=== PATIENT | male | born 1955 | race Caucasian/White ===

== ENCOUNTER 2020-02-10 09:26 | Emergency (ER) | payer MEDICAID ==
[~2020-02-10] VITALS: Ht 185.4 cm; Wt 81.6 kg
[2020-02-10 10:18] LABS: Basophils # (auto) 0.1 10 ^3/uL (0-0.2); Basophils % (auto) 0.9 % (0.0-2.0); Eosinophils # (auto) 0.3 10 ^3/uL (0-0.8); Hematocrit 42.2 % (41.0-53.0); Lymphocytes # (auto) 2.1 10 ^3/uL (0.4-5.4); Lymphocytes % (auto) 30.1 % (10.0-50.0); Mean Corpuscular Hemoglobin 31.8 pg (28.0-32.0); Mean Corpuscular Hgb Conc. 35.5 g/dL (32.0-36.0); Mean Corpuscular Volume 89.5 fL (80.0-100.0); Monocytes # (auto) 0.6 10 ^3/uL (0-1.3); Monocytes % (auto) 7.8 % (0.0-12.0); Neutrophils % (auto) 57.2 % (37.0-80.0); Nucleated Red Blood Cells % 0.2 %; Platelet Count (auto) 249 10^3/uL (140-450); Red Blood Cells 4.72 10^6/uL (4.5-5.90); Red Cell Distribution Width 13.6 % (11.8-14.3); White Blood Cell 7.1 10^3/uL (4.4-10.8)
[2020-02-10] MEDS ORDERED: SODIUM CHLORIDE 0.9% 1,000 ML IV ONE (10:30)
[2020-02-10 10:35] LABS: Albumin 3.8 g/dL (3.4-5.0); Calcium 8.8 mg/dL (8.5-10.1); Potassium 3.7 mmol/L (3.5-5.1)
[2020-02-10 10:39] LABS: BUN/Creatinine Ratio 13.8; Bilirubin, Total 0.8 mg/dL (0.2-1.0); Total Protein 7.2 g/dL (6.4-8.2)
[2020-02-10 13:00] LABS: Urine Bacteria NONE SEEN /hpf (None Seen); Urine Blood Negative /uL (Negative); Urine Mucus FEW (None Seen); Urine Specific Gravity 1.035 (1.001-1.035); Urine WBC <1 /hpf (0 - 3)
[2020-02-10 14:45] VITALS: BP 125/86
== END 2020-02-10 16:18 | disposition left against medical advice (07) ==
LOC: ER 09:26
DX: E11.65 Type 2 diabetes mellitus with hyperglycemia (principal); I10 Essential (primary) hypertension; M10.9 Gout, unspecified; F12.10 Cannabis abuse, uncomplicated; Z53.29 Procedure and treatment not carried out because of patient's decision for other reasons
CPT/HCPCS: 36415; 80053; 81001; 82962; 85025; 96360; 99283; J7030

== ENCOUNTER 2020-07-09 12:38 | Inpatient (IN) | payer MEDICAID ==
[~2020-07-09] VITALS: Ht 185.4 cm; Wt 79.0 kg
[2020-07-09] MEDS ORDERED: ONDANSETRON HCL 4 MG/2 ML VIAL IV ONE (14:00)
[2020-07-09] MEDS ORDERED: SODIUM CHLORIDE 0.9% 1,000 ML IVB ONE ×2 (14:00→15:15)
[2020-07-09 14:14] LABS: Basophils # (auto) 0.1 10 ^3/uL (0-0.2); Basophils % (auto) 0.5 % (0.0-2.0); Eosinophils # (auto) 0 10 ^3/uL (0-0.8); Eosinophils % (auto) 0.2 % (0.0-7.0); Hematocrit 40.4 % (41.0-53.0); Hemoglobin 14.6 g/dL (13.5-17.5); Lymphocytes # (auto) 1.3 10 ^3/uL (0.4-5.4); Lymphocytes % (auto) 8.8 % (10.0-50.0); Mean Corpuscular Hemoglobin 29.6 pg (28.0-32.0); Mean Corpuscular Hgb Conc. 36.1 g/dL (32.0-36.0); Mean Corpuscular Volume 82.1 fL (80.0-100.0); Monocytes # (auto) 1.1 10 ^3/uL (0-1.3); Monocytes % (auto) 7.4 % (0.0-12.0); Neutrophils % (auto) 83.1 % (37.0-80.0); Nucleated Red Blood Cells % 0.1 %; Platelet Count (auto) 406 10^3/uL (140-450); Red Blood Cells 4.92 10^6/uL (4.5-5.90); White Blood Cell 14.4 10^3/uL (4.4-10.8)
[2020-07-09 14:30] LABS: Albumin 2.6 g/dL (3.4-5.0); Calcium 8.4 mg/dL (8.5-10.1); INR 1.21 (0.9-1.15); Partial Thromboplastin Time 28.7 sec (23.0-31.2); Potassium 4.9 mmol/L (3.5-5.1)
[2020-07-09 14:32] LABS: Magnesium 2.2 mg/dL (1.6-2.6)
[2020-07-09 14:34] LABS: BUN/Creatinine Ratio 15.6; Bilirubin, Total 0.5 mg/dL (0.2-1.0)
[2020-07-09 14:37] LABS: Urine Bacteria NONE SEEN /hpf (None Seen); Urine Blood 3+ /uL (Negative); Urine Mucus FEW (None Seen); Urine Specific Gravity 1.016 (1.001-1.035); Urine WBC 2578 /hpf (0 - 3); Urine WBC Clumps PRESENT /hpf (None Seen)
[2020-07-09] MEDS ORDERED: cefTRIAXone 1GM/50ML D5W 50 ML IV ONE (15:15)
[2020-07-09] MEDS ORDERED: MORPHINE SULF INJ 2 MG/ML SYRINGE 1ML IV ONE ×2 (15:15→15:30)
[2020-07-09] MEDS ORDERED: MORPHINE SULF INJ 2 MG/ML SYRINGE 1ML IV PRN (18:30)
[2020-07-09] MEDS ORDERED: hydrALAZINE HCL 20 MG/ML VL IV PRN (18:30)
[2020-07-09] MEDS ORDERED: NITROGLYCERIN 0.4 MG SL TAB SL PRN (18:30)
[2020-07-09] MEDS ORDERED: ONDANSETRON HCL 4 MG/2 ML VIAL IV PRN (18:30)
[2020-07-09] MEDS ORDERED: ACETAMINOPHEN 325 MG TAB PO PRN (18:30)
[2020-07-09] MEDS ORDERED: HYDROcodone-ACET 5/325MG TAB PO PRN (18:30)
[2020-07-09] MEDS: ENOXAPARIN SOD 30 MG/0.3 ML SYRINGE SC SCH (18:54)
[2020-07-09 20:33] VITALS: BP 152/87
[2020-07-09 20:38] VITALS: BP 152/87
[2020-07-09] MEDS: MEROPENEM 500MG IVPB 50 ML IV SCH (21:52)
[2020-07-09 22:00] VITALS: BP 152/87
[2020-07-09] MEDS: LINEZOLID 600MG/300ML 300 ML IV SCH (22:52)
[2020-07-10 05:00] VITALS: BP 153/96
[2020-07-10 06:19] LABS: Protein, Urine 16.5 mg/dL (0.0-11.9)
[2020-07-10] MEDS: MEROPENEM 500MG IVPB 50 ML IV SCH ×2 (07:23→18:27)
[2020-07-10 09:00] VITALS: BP 120/83
[2020-07-10] MEDS ORDERED: cefTRIAXone 1GM/50ML D5W 50 ML IV SCH (10:00)
[2020-07-10] MEDS: LINEZOLID 600MG/300ML 300 ML IV SCH ×2 (10:04→21:23)
[2020-07-10] MEDS: PANTOPRAZOLE 40 MG TAB PO SCH (10:04)
[2020-07-10 13:00] VITALS: BP 134/82
[2020-07-10 16:30] LABS: Basophils # (auto) 0.1 10 ^3/uL (0-0.2); Eosinophils # (auto) 0.2 10 ^3/uL (0-0.8); Eosinophils % (auto) 1.8 % (0.0-7.0); Hematocrit 37.1 % (41.0-53.0); Lymphocytes # (auto) 1.7 10 ^3/uL (0.4-5.4); Lymphocytes % (auto) 18.4 % (10.0-50.0); Mean Corpuscular Hemoglobin 29.3 pg (28.0-32.0); Mean Corpuscular Volume 83.7 fL (80.0-100.0); Monocytes # (auto) 0.8 10 ^3/uL (0-1.3); Monocytes % (auto) 8.1 % (0.0-12.0); Neutrophils # (auto) 6.7 10 ^3/uL (1.6-8.6); Neutrophils % (auto) 70.7 % (37.0-80.0); Nucleated Red Blood Cells % 0.1 %; Platelet Count (auto) 411 10^3/uL (140-450); Red Blood Cells 4.43 10^6/uL (4.5-5.90); Red Cell Distribution Width 15.1 % (11.8-14.3); White Blood Cell 9.4 10^3/uL (4.4-10.8)
[2020-07-10 16:33] VITALS: BP 130/79
[2020-07-10] MEDS: SOD CHL 0.45% 1,000 ML IV SCH (16:45)
[2020-07-10 16:47] LABS: Potassium 4.8 mmol/L (3.5-5.1)
[2020-07-10 16:50] LABS: BUN/Creatinine Ratio 17.5
[2020-07-10] MEDS: ENOXAPARIN SOD 30 MG/0.3 ML SYRINGE SC SCH (18:00)
[2020-07-10 22:00] VITALS: BP 122/69
[2020-07-11] MEDS: SOD CHL 0.45% 1,000 ML IV SCH ×2 (02:45→14:12)
[2020-07-11 05:18] VITALS: BP 129/83
[2020-07-11 05:25] LABS: Basophils # (auto) 0.1 10 ^3/uL (0-0.2); Basophils % (auto) 0.9 % (0.0-2.0); Eosinophils # (auto) 0.3 10 ^3/uL (0-0.8); Eosinophils % (auto) 2.9 % (0.0-7.0); Hemoglobin 12.4 g/dL (13.5-17.5); Lymphocytes # (auto) 2.4 10 ^3/uL (0.4-5.4); Lymphocytes % (auto) 24.5 % (10.0-50.0); Mean Corpuscular Hemoglobin 29.6 pg (28.0-32.0); Mean Corpuscular Hgb Conc. 35.4 g/dL (32.0-36.0); Mean Corpuscular Volume 83.5 fL (80.0-100.0); Monocytes # (auto) 0.7 10 ^3/uL (0-1.3); Monocytes % (auto) 7.2 % (0.0-12.0); Neutrophils # (auto) 6.3 10 ^3/uL (1.6-8.6); Neutrophils % (auto) 64.5 % (37.0-80.0); Platelet Count (auto) 385 10^3/uL (140-450); Red Blood Cells 4.19 10^6/uL (4.5-5.90); Red Cell Distribution Width 14.4 % (11.8-14.3); White Blood Cell 9.8 10^3/uL (4.4-10.8)
[2020-07-11 05:43] LABS: Calcium 7.8 mg/dL (8.5-10.1); Potassium 4.6 mmol/L (3.5-5.1)
[2020-07-11 05:47] LABS: BUN/Creatinine Ratio 17.9; Bilirubin, Total 0.2 mg/dL (0.2-1.0); Total Protein 6.3 g/dL (6.4-8.2)
[2020-07-11] MEDS: MEROPENEM 500MG IVPB 50 ML IV SCH ×2 (06:13→18:13)
[2020-07-11 09:00] VITALS: BP 143/84
[2020-07-11] MEDS ORDERED: GADOTERATE MEG 10 MMOL/20ml INJ (0.5MMOL/ml) IV ONE (09:18)
[2020-07-11] MEDS: LINEZOLID 600MG/300ML 300 ML IV SCH (12:11)
[2020-07-11] MEDS: PANTOPRAZOLE 40 MG TAB PO SCH (12:11)
[2020-07-11 13:00] VITALS: BP 139/84
[2020-07-11 17:00] VITALS: BP 142/80
[2020-07-11] MEDS: ENOXAPARIN SOD 30 MG/0.3 ML SYRINGE SC SCH (18:13)
[2020-07-11] MEDS ORDERED: GLIM-5 PO (18:27)
[2020-07-11] MEDS ORDERED: METF-370 PO (18:27)
[2020-07-11] MEDS ORDERED: CIPR500T4 PO (18:28)
[2020-07-11 19:07] VITALS: BP 142/80
[2020-07-11 19:38] VITALS: BP 142/80
[2020-07-11] MEDS ORDERED: CIPROFLOXACIN HCL 500 MG TAB PO SCH (22:00)
== END 2020-07-11 21:00 | disposition home health service (06) | DRG 463 ==
LOC: ER 12:38 → TELE 18:28 → TELE-EAST 20:37 → TELE-CENTR 07-10 13:26
PROVIDERS: ADMIT Internal Medicine; ATTEND Internal Medicine
DX: N30.80 Other cystitis without hematuria (principal); J18.9 Pneumonia, unspecified organism; E44.0 Moderate protein-calorie malnutrition; E87.1 Hypo-osmolality and hyponatremia; N45.1 Epididymitis; Z20.822 Contact with and (suspected) exposure to COVID-19; N17.0 Acute kidney failure with tubular necrosis; N13.6 Pyonephrosis; N43.3 Hydrocele, unspecified; E11.21 Type 2 diabetes mellitus with diabetic nephropathy; E11.65 Type 2 diabetes mellitus with hyperglycemia; I10 Essential (primary) hypertension; J45.909 Unspecified asthma, uncomplicated; K59.00 Constipation, unspecified; N28.1 Cyst of kidney, acquired; N45.3 Epididymo-orchitis; Z79.4 Long term (current) use of insulin; Z82.49 Family history of ischemic heart disease and other diseases of the circulatory system; J90 Pleural effusion, not elsewhere classified
CPT/HCPCS: 36415; 51702; 71045; 73723; 74176; 74181; 76775; 80048; 80053; 81001; 82150; 82570; 83036; 83605; 83690; 83735; 84133; 84156; 84300; 84484; 85025; 85610; 85730; 87040; 87086; 87426; 93005; 96365; 96372; 96375; 99291; G0378; J0696; J2185; J2405

== ENCOUNTER 2021-11-23 11:03 | Inpatient (IN) | payer MEDICARE, MEDICAID ==
[~2021-11-23] VITALS: Ht 185.4 cm; Wt 72.4 kg
[~2021-11-23 11:03] MED LIST: CIPR500T4 PO; GLIM-5 PO; METF-370 PO
[2021-11-23] MEDS ORDERED: PIPERACILLIN-TAZOB 3.375GM 100 ML IV ONE (12:00)
[2021-11-23] MEDS: SODIUM CHLORIDE 0.9% 1,000 ML IV ONE ×2 (12:15→15:47)
[2021-11-23 12:35] LABS: Basophils # (auto) 0.1 10 ^3/uL (0-0.2); Eosinophils # (auto) 0 10 ^3/uL (0-0.8)
[2021-11-23 12:37] LABS: Basophils % (auto) 0.7 % (0.0-2.0); Hematocrit 29.7 % (41.0-53.0); Hemoglobin 9.6 g/dL (13.5-17.5); Lymphocytes % (auto) 5.2 % (10.0-50.0); Mean Corpuscular Hemoglobin 25.6 pg (28.0-32.0); Mean Corpuscular Hgb Conc. 32.5 g/dL (32.0-36.0); Mean Corpuscular Volume 78.9 fL (80.0-100.0); Monocytes # (auto) 1.1 10 ^3/uL (0-1.3); Monocytes % (auto) 5.4 % (0.0-12.0); Neutrophils # (auto) 17.9 10 ^3/uL (1.6-8.6); Neutrophils % (auto) 88.7 % (37.0-80.0); Nucleated Red Blood Cells % 0.1 %; Red Blood Cells 3.76 10^6/uL (4.5-5.90); Red Cell Distribution Width 15.2 % (11.8-14.3); White Blood Cell 20.1 10^3/uL (4.4-10.8)
[2021-11-23 12:51] LABS: Calcium 8.4 mg/dL (8.5-10.1); Potassium 4.5 mmol/L (3.5-5.1)
[2021-11-23 12:54] LABS: Lactic Acid w/Reflex 2.7 mmol/L (0.4-2.0)
[2021-11-23 12:59] LABS: BUN/Creatinine Ratio 18.2; Bilirubin, Total 0.4 mg/dL (0.2-1.0); CRP High Sensitivity 18.1 mg/dL (< 0.3); Total Protein 7.1 g/dL (6.4-8.2)
[2021-11-23] MEDS ORDERED: VANCOMYCIN 1GM/250ML 250 ML IV ONE (13:15)
[2021-11-23] MEDS ORDERED: SODIUM CHLORIDE 0.9% 1,000 ML IV ONE ×2 (13:30→14:15)
[2021-11-23] MEDS ORDERED: InsuLIN REG 1unit/0.01ml Soln (100units/ml) IV ONE (13:30)
[2021-11-23 14:11] LABS: Urine Bacteria MANY /hpf (None Seen); Urine Blood Negative /uL (Negative); Urine Specific Gravity 1.017 (1.001-1.035); Urine WBC 238 /hpf (0 - 3); Urine WBC Clumps PRESENT /hpf (None Seen)
[2021-11-23] MEDS ORDERED: VANCOMYCIN PER PHARMACY 0 MG IV SCH (14:30)
[2021-11-23] MEDS ORDERED: DEXTROSE (50%) 50ML SYRG IV PRN (15:00)
[2021-11-23 15:25] LABS: Cholesterol 73 mg/dL (< 200)
[2021-11-23 15:27] LABS: HDL Cholesterol 24 mg/dL (40-59); LDL Cholesterol 51 mg/dL (< 100); Triglycerides 80 mg/dL (< 150)
[2021-11-23] MEDS: SODIUM CHLORIDE 0.9% 1,000 ML IV SCH (16:55)
[2021-11-23] MEDS: ACCU-CHEK COMFORT CURVE STRIP VI SCH ×2 (17:11→22:06)
[2021-11-23] MEDS: InsuLIN REG 1unit/0.01ml Soln (100units/ml) SC SCH ×2 (17:12→21:57)
[2021-11-23] MEDS: PIPERACILLIN-TAZOB 2.25GM 50 ML IV SCH (18:37)
[2021-11-23 22:00] VITALS: BP 104/65
[2021-11-23] MEDS: INSULIN LANTUS (GLARGINE) 1 /0.01ml (100units/ml) SC SCH (22:05)
[2021-11-23] MEDS: HEPARIN SODIUM (PORCINE) 5000 UNITS/ML 1ML VIAL SC SCH (22:06)
[2021-11-23] MEDS ORDERED: ATOR20TA50 PO (22:38)
[2021-11-24] MEDS: PIPERACILLIN-TAZOB 2.25GM 50 ML IV SCH ×4 (00:14→17:34)
[2021-11-24] MEDS: SODIUM CHLORIDE 0.9% 1,000 ML IV SCH ×3 (01:30→21:30)
[2021-11-24] MEDS: VANCOMYCIN 1GM/250ML 250 ML IV SCH ×2 (02:25→15:00)
[2021-11-24 05:00] VITALS: BP 94/53
[2021-11-24] MEDS: InsuLIN REG 1unit/0.01ml Soln (100units/ml) SC SCH ×4 (06:28→22:03)
[2021-11-24] MEDS: ACCU-CHEK COMFORT CURVE STRIP VI SCH ×4 (06:30→22:03)
[2021-11-24 08:54] LABS: Basophils # (auto) 0.1 10 ^3/uL (0-0.2); Basophils % (auto) 0.9 % (0.0-2.0); Eosinophils # (auto) 0.1 10 ^3/uL (0-0.8); Eosinophils % (auto) 1.1 % (0.0-7.0); Hemoglobin 8.1 g/dL (13.5-17.5); Mean Corpuscular Hemoglobin 26.1 pg (28.0-32.0); Monocytes # (auto) 0.8 10 ^3/uL (0-1.3)
[2021-11-24 08:55] LABS: Hematocrit 24.1 % (41.0-53.0); Lymphocytes # (auto) 1.5 10 ^3/uL (0.4-5.4); Lymphocytes % (auto) 13.2 % (10.0-50.0); Mean Corpuscular Hgb Conc. 33.7 g/dL (32.0-36.0); Mean Corpuscular Volume 77.4 fL (80.0-100.0); Monocytes % (auto) 7.3 % (0.0-12.0); Neutrophils # (auto) 8.9 10 ^3/uL (1.6-8.6); Neutrophils % (auto) 77.5 % (37.0-80.0); Red Blood Cells 3.11 10^6/uL (4.5-5.90); Red Cell Distribution Width 15.3 % (11.8-14.3); White Blood Cell 11.5 10^3/uL (4.4-10.8)
[2021-11-24 09:14] LABS: Albumin 1.6 g/dL (3.4-5.0); Bilirubin, Total 0.3 mg/dL (0.2-1.0); Calcium 8.1 mg/dL (8.5-10.1); Total Protein 5.8 g/dL (6.4-8.2)
[2021-11-24] MEDS: HEPARIN SODIUM (PORCINE) 5000 UNITS/ML 1ML VIAL SC SCH ×2 (09:21→22:04)
[2021-11-24 09:35] VITALS: BP 103/61
[2021-11-24 13:19] VITALS: BP 97/57
[2021-11-24] MEDS ORDERED: DAKINS QUARTER STR 0.125% (NaHypochlorite) 473 ML TOPICAL SOL TOP SCH (14:00)
[2021-11-24 17:40] VITALS: BP 107/68
[2021-11-24 22:00] VITALS: BP 111/64
[2021-11-24] MEDS: INSULIN LANTUS (GLARGINE) 1 /0.01ml (100units/ml) SC SCH (22:02)
[2021-11-25] MEDS: PIPERACILLIN-TAZOB 2.25GM 50 ML IV SCH ×4 (01:11→18:17)
[2021-11-25] MEDS: VANCOMYCIN 1GM/250ML 250 ML IV SCH (02:00)
[2021-11-25] MEDS: SODIUM CHLORIDE 0.9% 1,000 ML IV SCH (03:59)
[2021-11-25 05:00] VITALS: BP 106/76
[2021-11-25] MEDS: ACCU-CHEK COMFORT CURVE STRIP VI SCH ×4 (06:44→22:02)
[2021-11-25] MEDS: InsuLIN REG 1unit/0.01ml Soln (100units/ml) SC SCH ×4 (06:44→22:00)
[2021-11-25 08:55] VITALS: BP 132/63
[2021-11-25] MEDS: HEPARIN SODIUM (PORCINE) 5000 UNITS/ML 1ML VIAL SC SCH ×2 (10:29→21:59)
[2021-11-25] MEDS: DAKINS QUARTER STR 0.125% (NaHypochlorite) 473 ML TOPICAL SOL TOP SCH (11:24)
[2021-11-25] MEDS ORDERED: MORPHINE SULFATE INJ 2 MG/ml SYRG IV PRN (12:15)
[2021-11-25 13:00] VITALS: BP 120/65
[2021-11-25] MEDS ORDERED: VANCOMYCIN 1GM/250ML 250 ML IV SCH (15:00)
[2021-11-25 16:45] VITALS: BP 123/72
[2021-11-25] MEDS: VANCOMYCIN 750mg/250ml 250 ML IV SCH (16:56)
[2021-11-25 22:00] VITALS: BP 126/76
[2021-11-25] MEDS: INSULIN LANTUS (GLARGINE) 1 /0.01ml (100units/ml) SC SCH (22:00)
[2021-11-26] MEDS: PIPERACILLIN-TAZOB 2.25GM 50 ML IV SCH ×4 (00:02→12:41)
[2021-11-26] MEDS: SODIUM CHLORIDE 0.9% 1,000 ML IV SCH ×3 (00:03→20:09)
[2021-11-26 05:00] VITALS: BP 124/69
[2021-11-26] MEDS: VANCOMYCIN 750mg/250ml 250 ML IV SCH (05:32)
[2021-11-26] MEDS: InsuLIN REG 1unit/0.01ml Soln (100units/ml) SC SCH ×4 (06:27→21:52)
[2021-11-26] MEDS: ACCU-CHEK COMFORT CURVE STRIP VI SCH ×4 (06:28→21:53)
[2021-11-26 09:20] VITALS: BP 115/68
[2021-11-26] MEDS: HEPARIN SODIUM (PORCINE) 5000 UNITS/ML 1ML VIAL SC SCH ×3 (09:54→21:58)
[2021-11-26] MEDS: DAKINS QUARTER STR 0.125% (NaHypochlorite) 473 ML TOPICAL SOL TOP SCH (09:58)
[2021-11-26 10:28] LABS: Basophils # (auto) 0.1 10 ^3/uL (0-0.2); Eosinophils # (auto) 0.2 10 ^3/uL (0-0.8); Hemoglobin 8.7 g/dL (13.5-17.5); Monocytes # (auto) 0.7 10 ^3/uL (0-1.3)
[2021-11-26 10:30] LABS: Eosinophils % (auto) 1.9 % (0.0-7.0); Lymphocytes # (auto) 1.4 10 ^3/uL (0.4-5.4); Lymphocytes % (auto) 14.6 % (10.0-50.0); Mean Corpuscular Hemoglobin 26.1 pg (28.0-32.0); Mean Corpuscular Hgb Conc. 33.4 g/dL (32.0-36.0); Mean Corpuscular Volume 78.1 fL (80.0-100.0); Monocytes % (auto) 7.8 % (0.0-12.0); Neutrophils # (auto) 7.1 10 ^3/uL (1.6-8.6); Neutrophils % (auto) 74.7 % (37.0-80.0); Nucleated Red Blood Cells % 0.1 %; Red Blood Cells 3.33 10^6/uL (4.5-5.90); Red Cell Distribution Width 15.5 % (11.8-14.3); White Blood Cell 9.5 10^3/uL (4.4-10.8)
[2021-11-26 10:40] LABS: Potassium 4.9 mmol/L (3.5-5.1)
[2021-11-26 10:44] LABS: BUN/Creatinine Ratio 25.7; Calcium 8.3 mg/dL (8.5-10.1)
[2021-11-26 12:45] VITALS: BP 113/68
[2021-11-26] MEDS ORDERED: levoFLOXacin 750MG 150 ML IV ONE (15:30)
[2021-11-26 16:54] VITALS: BP 110/70
[2021-11-26] MEDS: INSULIN LANTUS (GLARGINE) 1 /0.01ml (100units/ml) SC SCH (21:52)
[2021-11-26 22:00] VITALS: BP 96/53
[2021-11-27] MEDS: SODIUM CHLORIDE 0.9% 1,000 ML IV SCH ×2 (02:30→09:30)
[2021-11-27 05:00] VITALS: BP 128/75
[2021-11-27] MEDS: ACCU-CHEK COMFORT CURVE STRIP VI SCH ×2 (06:35→11:37)
[2021-11-27] MEDS: InsuLIN REG 1unit/0.01ml Soln (100units/ml) SC SCH ×2 (06:38→11:40)
[2021-11-27 07:11] LABS: Basophils # (auto) 0.1 10 ^3/uL (0-0.2); Basophils % (auto) 1.1 % (0.0-2.0); Eosinophils # (auto) 0.2 10 ^3/uL (0-0.8); Monocytes # (auto) 0.8 10 ^3/uL (0-1.3); Neutrophils # (auto) 7.4 10 ^3/uL (1.6-8.6); Nucleated Red Blood Cells % 0.1 %
[2021-11-27 07:13] LABS: Eosinophils % (auto) 1.8 % (0.0-7.0); Hematocrit 26.9 % (41.0-53.0); Hemoglobin 8.9 g/dL (13.5-17.5); Lymphocytes # (auto) 1.8 10 ^3/uL (0.4-5.4); Lymphocytes % (auto) 17.9 % (10.0-50.0); Mean Corpuscular Hemoglobin 26.2 pg (28.0-32.0); Mean Corpuscular Hgb Conc. 33.1 g/dL (32.0-36.0); Monocytes % (auto) 7.4 % (0.0-12.0); Neutrophils % (auto) 71.8 % (37.0-80.0); Red Cell Distribution Width 15.3 % (11.8-14.3); White Blood Cell 10.3 10^3/uL (4.4-10.8)
[2021-11-27 07:26] LABS: BUN/Creatinine Ratio 19.9; Calcium 8.3 mg/dL (8.5-10.1); Potassium 4.5 mmol/L (3.5-5.1)
[2021-11-27 08:40] VITALS: BP 130/72
[2021-11-27] MEDS ORDERED: levoFLOXacin 750MG 150 ML IV SCH (10:00)
[2021-11-27] MEDS: DAKINS QUARTER STR 0.125% (NaHypochlorite) 473 ML TOPICAL SOL TOP SCH (10:51)
[2021-11-27] MEDS ORDERED: LEVO750T64 PO (12:44)
[2021-11-27] MEDS ORDERED: DOXY-332 PO (12:44)
[2021-11-27 13:00] VITALS: BP 116/69
[2021-11-27 13:35] VITALS: BP 116/69
== END 2021-11-27 15:53 | disposition home or self-care (01) | DRG 638 ==
LOC: ER 11:12 → TELE 14:51 → TELE-WESTW 20:48
PROVIDERS: ADMIT Registered Nurse; ATTEND Internal Medicine Pulmonary Disease
DX: E11.69 Type 2 diabetes mellitus with other specified complication (principal); E87.1 Hypo-osmolality and hyponatremia; M86.8X7 Other osteomyelitis, ankle and foot; E88.09 Other disorders of plasma-protein metabolism, not elsewhere classified; L97.509 Non-pressure chronic ulcer of other part of unspecified foot with unspecified severity; N18.32 Chronic kidney disease, stage 3b; E11.65 Type 2 diabetes mellitus with hyperglycemia; E11.22 Type 2 diabetes mellitus with diabetic chronic kidney disease; Z20.822 Contact with and (suspected) exposure to COVID-19; E11.621 Type 2 diabetes mellitus with foot ulcer; E78.5 Hyperlipidemia, unspecified; F17.210 Nicotine dependence, cigarettes, uncomplicated; F12.90 Cannabis use, unspecified, uncomplicated; I12.9 Hypertensive chronic kidney disease with stage 1 through stage 4 chronic kidney disease, or unspecified chronic kidney disease; K59.00 Constipation, unspecified; L97.519 Non-pressure chronic ulcer of other part of right foot with unspecified severity; N32.0 Bladder-neck obstruction; Z82.49 Family history of ischemic heart disease and other diseases of the circulatory system
CPT/HCPCS: 36415; 73700; 80048; 80053; 80061; 80202; 81001; 82565; 82962; 83036; 83605; 83735; 83880; 85025; 86141; 87040; 87077; 87086; 87186; 87205; 96361; 96365; 96366; 96367; 96372; 96375; G0378; J1815; J1956; J2543

== ENCOUNTER 2022-02-08 15:05 | Inpatient (IN) | payer MEDICARE, MEDICAID ==
[~2022-02-08] VITALS: Ht 170.2 cm; Wt 84.8 kg
[~2022-02-08 15:05] MED LIST changes: +ATOR20TA50 PO; -CIPR500T4 PO; +DOXY-332 PO; +LEVO750T64 PO
[2022-02-08] MEDS ORDERED: SODIUM CHLORIDE 0.9% 1,000 ML IV ONE ×2 (23:00)
[2022-02-08] MEDS ORDERED: cefTRIAXone 1GM/50ML D5W 50 ML IV ONE (23:00)
[2022-02-09] VITALS (21 sets, daily range): BP systolic 94–115; BP diastolic 56–66
[2022-02-09] MEDS ORDERED: DEXTROSE (50%) 50ML SYRG IV PRN ×2 (00:15→06:00)
[2022-02-09] MEDS ORDERED: ACETAMINOPHEN 325 MG TAB PO PRN (00:15)
[2022-02-09] MEDS ORDERED: MORPHINE SULFATE INJ 2 MG/ml SYRG IV PRN ×2 (00:15)
[2022-02-09] MEDS ORDERED: SODIUM CHLORIDE 0.9% 1,000 ML IV SCH ×2 (00:15→09:15)
[2022-02-09] MEDS ORDERED: DOCUSATE SOD 100 MG CAP PO PRN (00:15)
[2022-02-09] MEDS ORDERED: NITROGLYCERIN 0.4 MG SL TAB SL PRN (00:15)
[2022-02-09] MEDS ORDERED: HYDROcodone-ACET 5/325MG TAB PO PRN (00:15)
[2022-02-09 00:43] LABS: Albumin 2.9 g/dL (3.4-5.0); BUN/Creatinine Ratio 16.1; Calcium 8.9 mg/dL (8.5-10.1)
[2022-02-09 00:46] LABS: Bilirubin, Total 0.9 mg/dL (0.2-1.0); Total Protein 7.8 g/dL (6.4-8.2)
[2022-02-09 00:48] LABS: Potassium 7.2 mmol/L (3.5-5.1)
[2022-02-09 00:54] LABS: Lactic Acid w/Reflex 9.9 mmol/L (0.4-2.0)
[2022-02-09] MEDS ORDERED: ALBUTEROL SULF 2.5 MG/0.5ML(0.5%) NEB SOLN NEB ONE ×2 (01:00→01:30)
[2022-02-09] MEDS ORDERED: InsuLIN REG 1unit/0.01ml Soln (100units/ml) IV ONE ×4 (01:00→12:00)
[2022-02-09] MEDS ORDERED: FUROSEMIDE 20 MG/2 ML VIAL IV ONE ×2 (01:00→01:30)
[2022-02-09] MEDS ORDERED: SODIUM ZIRCONIUM CYCL 10 GM PAK PO ONE ×2 (01:00→01:30)
[2022-02-09] MEDS ORDERED: IBUPROFEN 600 MG TAB PO PRN (01:00)
[2022-02-09] MEDS ORDERED: SODIUM BICARBONATE 8.4% INJ 50ML SYRINGE IV ONE ×3 (01:00→09:30)
[2022-02-09 01:05] LABS: Basophils # (auto) 0.1 10 ^3/uL (0-0.2); Basophils % (auto) 0.4 % (0.0-2.0); Eosinophils # (auto) 0 10 ^3/uL (0-0.8); Eosinophils % (auto) 0.1 % (0.0-7.0); Hematocrit 39.3 % (41.0-53.0); Hemoglobin 12.6 g/dL (13.5-17.5); Lymphocytes # (auto) 0.5 10 ^3/uL (0.4-5.4); Lymphocytes % (auto) 2.5 % (10.0-50.0); Mean Corpuscular Hemoglobin 25.4 pg (28.0-32.0); Mean Corpuscular Volume 79.4 fL (80.0-100.0); Monocytes % (auto) 4.8 % (0.0-12.0); Neutrophils % (auto) 92.2 % (37.0-80.0); Nucleated Red Blood Cells % 0.2 %; Red Blood Cells 4.95 10^6/uL (4.5-5.90); Red Cell Distribution Width 18.4 % (11.8-14.3); White Blood Cell 20.6 10^3/uL (4.4-10.8)
[2022-02-09 01:10] LABS: INR 1.53 (0.9-1.15); Partial Thromboplastin Time 31.5 sec (24.6-33.4)
[2022-02-09] MEDS ORDERED: ALBUMIN 25% 100 ML IV ONE (01:15)
[2022-02-09] MEDS ORDERED: SODIUM CHLORIDE 0.9% 1,000 ML IV ONE ×6 (01:30→08:45)
[2022-02-09] MEDS ORDERED: CALCIUM GLUC 1,000mg/50ml-NS 50 ML IV ONE ×3 (01:30→12:00)
[2022-02-09] MEDS ORDERED: CLINDAMYCIN 600MG IV 50 ML IV ONE (01:30)
[2022-02-09] MEDS ORDERED: DEXTROSE (50%) 50ML SYRG IV ONE ×3 (01:30→12:00)
[2022-02-09 02:17] LABS: INR 1.67 (0.9-1.15); Partial Thromboplastin Time 31.3 sec (24.6-33.4)
[2022-02-09] MEDS: ONDANSETRON HCL 4 MG/2 ML VIAL IV PRN ×3 (02:42→12:42)
[2022-02-09 02:56] LABS: Urine Bacteria MANY /hpf (None Seen); Urine Blood 3+ /uL (Negative); Urine Specific Gravity 1.015 (1.001-1.035); Urine WBC 1747 /hpf (0 - 3); Urine WBC Clumps PRESENT /hpf (None Seen)
[2022-02-09] MEDS ORDERED: NOREPINEPHRINE 8 MG/250ML KIT 250 ML IV ONE (05:21)
[2022-02-09] MEDS ORDERED: FAMOTIDINE (10MG/ML) 2ML VL IV ONE (06:00)
[2022-02-09] MEDS ORDERED: InsuLIN REG 1unit/0.01ml Soln (100units/ml) ONE (06:08)
[2022-02-09 06:44] LABS: Hemoglobin 10.7 g/dL (13.5-17.5)
[2022-02-09 06:46] LABS: Hematocrit 32.5 % (41.0-53.0); Mean Corpuscular Hemoglobin 25.3 pg (28.0-32.0); Mean Corpuscular Volume 76.6 fL (80.0-100.0); Red Blood Cells 4.24 10^6/uL (4.5-5.90); Red Cell Distribution Width 18.1 % (11.8-14.3)
[2022-02-09] MEDS: InsuLIN R (HUMAN) 100 UNITS in SODIUM CHL 0.9% 99 ML IV SCH (06:53)
[2022-02-09 06:57] LABS: Basophils % (manual) 0 (0.0-2.0); Blast Cells 0; Eosinophils % (manual) 0 (0-7); Myelocytes % 0; Promyelocytes % 0; Reactive Lymphocytes 0
[2022-02-09 07:00] LABS: Albumin 2.7 g/dL (3.4-5.0); Calcium 7.7 mg/dL (8.5-10.1)
[2022-02-09] MEDS ORDERED: ACCU-CHEK COMFORT CURVE STRIP VI SCH (07:00)
[2022-02-09] MEDS ORDERED: INSULIN LANTUS (GLARGINE) 1 /0.01ml (100units/ml) SC SCH (07:00)
[2022-02-09] MEDS ORDERED: InsuLIN REG 1unit/0.01ml Soln (100units/ml) SC SCH ×2 (07:00→22:00)
[2022-02-09] MEDS: ACCU-CHEK COMFORT CURVE STRIP VI SCH ×11 (07:00→22:53)
[2022-02-09 07:03] LABS: BUN/Creatinine Ratio 19.9; Bilirubin, Total 0.9 mg/dL (0.2-1.0); Total Protein 6.2 g/dL (6.4-8.2)
[2022-02-09 07:51] LABS: Potassium 6.1 mmol/L (3.5-5.1)
[2022-02-09 07:58] LABS: Band Neutrophils % (manual) 20; Lymphocytes % (manual) 15 (10.0-50.0); Metamyelocytes % 3; Monocytes % (manual) 20 (0-12)
[2022-02-09] MEDS ORDERED: INSULIN LANTUS (GLARGINE) 1 /0.01ml (100units/ml) SC ONE (08:15)
[2022-02-09] MEDS: NOREPINEPHRINE 8 MG/250ML KIT 250 ML IV SCH (08:21)
[2022-02-09] MEDS ORDERED: SODIUM BICARBONATE 50ML VIAL 100 ML in SOD CHL 0.45% 1,000 ML IV ONE (08:30)
[2022-02-09] MEDS: ASPirin 81 mg TAB PO SCH (09:24)
[2022-02-09] MEDS: ASCORBIC ACID 500 MG TAB PO SCH ×2 (09:24→22:00)
[2022-02-09] MEDS: ZINC SULFATE 220mg CAP or TAB PO SCH (09:24)
[2022-02-09] MEDS: MULTIPLE VITAMIN TAB PO SCH (09:24)
[2022-02-09 09:50] LABS: Creatinine, Urine 43 mg/dL (30.0-125.0); Sodium Urine 99 mmol/L (40-220)
[2022-02-09] MEDS ORDERED: FAMOTIDINE (10MG/ML) 2ML VL IV SCH (10:00)
[2022-02-09] MEDS: ALBUMIN 25% 100 ML IV SCH ×2 (10:37→19:29)
[2022-02-09 10:51] LABS: Hematocrit 32.7 % (41.0-53.0); Hemoglobin 10.3 g/dL (13.5-17.5); Mean Corpuscular Hemoglobin 24.9 pg (28.0-32.0); Mean Corpuscular Hgb Conc. 31.7 g/dL (32.0-36.0); Mean Corpuscular Volume 78.7 fL (80.0-100.0); Red Blood Cells 4.16 10^6/uL (4.5-5.90); Red Cell Distribution Width 17.8 % (11.8-14.3); White Blood Cell 6.3 10^3/uL (4.4-10.8)
[2022-02-09 10:54] LABS: Basophils % (manual) 0 (0.0-2.0); Blast Cells 0; Eosinophils % (manual) 0 (0-7); Myelocytes % 0; Promyelocytes % 0; Reactive Lymphocytes 0
[2022-02-09 11:09] LABS: Albumin 2.1 g/dL (3.4-5.0); Band Neutrophils % (manual) 32; Calcium 6.8 mg/dL (8.5-10.1); Lymphocytes % (manual) 16 (10.0-50.0); Metamyelocytes % 1; Monocytes % (manual) 5 (0-12)
[2022-02-09 11:13] LABS: Bilirubin, Total 0.6 mg/dL (0.2-1.0); Total Protein 5.3 g/dL (6.4-8.2)
[2022-02-09 11:19] LABS: Potassium 6.4 mmol/L (3.5-5.1)
[2022-02-09] MEDS ORDERED: VANCOMYCIN PER PHARMACY 0 MG IV SCH (11:45)
[2022-02-09] MEDS ORDERED: CEFEPIME 1GM/ 50ML 50 ML IV ONE (11:45)
[2022-02-09] MEDS ORDERED: SODIUM CHL 0.9% 1000 ML BAG XX ONE (12:15)
[2022-02-09] MEDS ORDERED: HALOPERIDOL LACTATE 5 MG/ML INJ VIAL IV ONE (12:15)
[2022-02-09] MEDS: SODIUM BICARBONATE 50ML VIAL 50 ML in SOD CHL 0.45% 1,000 ML IV SCH ×2 (12:20→19:25)
[2022-02-09] MEDS ORDERED: VANCOMYCIN 1GM/250ML 250 ML IV ONE ×2 (12:30→18:45)
[2022-02-09] MEDS ORDERED: D5W/SOD CHLO 0.9% 1,000 ML IV ONE (12:45)
[2022-02-09] MEDS ORDERED: MORPHINE SULFATE INJ 2 MG/ml SYRG IV ONE (13:30)
[2022-02-09] MEDS ORDERED: CLINDAMYCIN 600MG IV 50 ML IV SCH (14:00)
[2022-02-09 15:08] LABS: White Blood Cell 5.1 10^3/uL (4.4-10.8)
[2022-02-09 15:10] LABS: Hematocrit 27.8 % (41.0-53.0); Hemoglobin 9.4 g/dL (13.5-17.5); Mean Corpuscular Hemoglobin 25.4 pg (28.0-32.0); Mean Corpuscular Hgb Conc. 33.7 g/dL (32.0-36.0); Mean Corpuscular Volume 75.4 fL (80.0-100.0); Red Cell Distribution Width 18.3 % (11.8-14.3)
[2022-02-09 15:29] LABS: Basophils % (manual) 0 (0.0-2.0); Blast Cells 0; Eosinophils % (manual) 0 (0-7); Myelocytes % 0; Promyelocytes % 0; Reactive Lymphocytes 0
[2022-02-09 15:33] LABS: Lactic Acid w/Reflex 3.1 mmol/L (0.4-2.0)
[2022-02-09] MEDS: DOPamine 1600MCG/ML D5W 250 ML IV SCH (16:03)
[2022-02-09 16:37] LABS: Band Neutrophils % (manual) 33; Lymphocytes % (manual) 9 (10.0-50.0); Metamyelocytes % 4; Monocytes % (manual) 8 (0-12)
[2022-02-09] MEDS: HALOPERIDOL LACTATE 5 MG/ML INJ VIAL IV PRN (16:50)
[2022-02-09] MEDS: PIPERACILLIN-TAZOB 2.25GM 50 ML IV SCH (19:28)
[2022-02-09 20:26] LABS: BUN/Creatinine Ratio 23.2; Calcium 6.3 mg/dL (8.5-10.1)
[2022-02-09 20:49] LABS: Potassium 5.4 mmol/L (3.5-5.1)
[2022-02-09] MEDS ORDERED: EPOETIN ALFA-EPBX 10,000 UNIT/1ML VIAL SC ONE (21:00)
[2022-02-09] MEDS: INSULIN LANTUS (GLARGINE) 1 /0.01ml (100units/ml) SC SCH (21:55)
[2022-02-10] VITALS (96 sets, daily range): BP systolic 87–127; BP diastolic 52–77
[2022-02-10] MEDS: ACCU-CHEK COMFORT CURVE STRIP VI SCH ×9 (00:01→17:54)
[2022-02-10] MEDS: PIPERACILLIN-TAZOB 2.25GM 50 ML IV SCH ×4 (00:12→18:00)
[2022-02-10] MEDS: SODIUM BICARBONATE 50ML VIAL 50 ML in SOD CHL 0.45% 1,000 ML IV SCH ×4 (00:13→21:08)
[2022-02-10] MEDS: ALBUMIN 25% 100 ML IV SCH ×3 (01:44→13:01)
[2022-02-10] MEDS: NOREPINEPHRINE 8 MG/250ML KIT 250 ML IV SCH (01:55)
[2022-02-10] MEDS: MORPHINE SULFATE INJ 2 MG/ml SYRG IV PRN (03:37)
[2022-02-10 04:07] LABS: Hemoglobin 9.3 g/dL (13.5-17.5)
[2022-02-10 04:09] LABS: Hematocrit 27.8 % (41.0-53.0); Mean Corpuscular Hemoglobin 25.4 pg (28.0-32.0); Mean Corpuscular Hgb Conc. 33.5 g/dL (32.0-36.0); Mean Corpuscular Volume 75.8 fL (80.0-100.0); Red Blood Cells 3.66 10^6/uL (4.5-5.90); Red Cell Distribution Width 18.7 % (11.8-14.3); White Blood Cell 5.6 10^3/uL (4.4-10.8)
[2022-02-10 04:17] LABS: Basophils % (manual) 0 (0.0-2.0); Blast Cells 0; Eosinophils % (manual) 0 (0-7); Promyelocytes % 0; Reactive Lymphocytes 0
[2022-02-10 04:22] LABS: Albumin 2.7 g/dL (3.4-5.0); BUN/Creatinine Ratio 24.1; Potassium 5.2 mmol/L (3.5-5.1)
[2022-02-10 04:25] LABS: Bilirubin, Total 1.1 mg/dL (0.2-1.0); Total Protein 5.2 g/dL (6.4-8.2)
[2022-02-10] MEDS: InsuLIN R (HUMAN) 100 UNITS in SODIUM CHL 0.9% 99 ML IV SCH (06:00)
[2022-02-10] MEDS: INSULIN LANTUS (GLARGINE) 1 /0.01ml (100units/ml) SC SCH ×3 (06:01→20:23)
[2022-02-10] MEDS ORDERED: METOCLOPRAMIDE HCL 5MG/ml INJ 2ml VIAL IV ONE (08:00)
[2022-02-10] MEDS: MULTIPLE VITAMIN TAB PO SCH (09:52)
[2022-02-10] MEDS: ZINC SULFATE 220mg CAP or TAB PO SCH (09:52)
[2022-02-10] MEDS: ASCORBIC ACID 500 MG TAB PO SCH ×2 (09:52→20:23)
[2022-02-10] MEDS: ASPirin 81 mg TAB PO SCH (09:52)
[2022-02-10] MEDS ORDERED: CALCIUM GLUC 1,000mg/50ml-NS 50 ML IV ONE (10:30)
[2022-02-10] MEDS ORDERED: VANCOMYCIN 1GM/250ML 250 ML IV ONE ×2 (10:30→18:00)
[2022-02-10] MEDS ORDERED: DEXTROSE (50%) 50ML SYRG IV PRN (11:15)
[2022-02-10] MEDS: InsuLIN REG 1unit/0.01ml Soln (100units/ml) SC SCH ×2 (11:45→17:54)
[2022-02-10] MEDS ORDERED: FLUCONAZOLE 200MG/100ML 100 ML IV ONE (12:15)
[2022-02-10] MEDS: DOPamine 1600MCG/ML D5W 250 ML IV SCH (14:15)
[2022-02-10 14:50] LABS: Band Neutrophils % (manual) 25; Lymphocytes % (manual) 5 (10.0-50.0); Metamyelocytes % 1; Monocytes % (manual) 9 (0-12); Myelocytes % 1
[2022-02-11] VITALS (96 sets, daily range): BP systolic 79–122; BP diastolic 46–76
[2022-02-11] MEDS: PIPERACILLIN-TAZOB 2.25GM 50 ML IV SCH ×5 (00:06→17:46)
[2022-02-11] MEDS: ACCU-CHEK COMFORT CURVE STRIP VI SCH ×4 (00:12→17:46)
[2022-02-11] MEDS: SODIUM BICARBONATE 50ML VIAL 50 ML in SOD CHL 0.45% 1,000 ML IV SCH ×2 (03:53→09:49)
[2022-02-11] MEDS: NOREPINEPHRINE 8 MG/250ML KIT 250 ML IV SCH ×2 (05:15→18:50)
[2022-02-11] MEDS: InsuLIN REG 1unit/0.01ml Soln (100units/ml) SC SCH ×4 (05:29→17:48)
[2022-02-11] MEDS: INSULIN LANTUS (GLARGINE) 1 /0.01ml (100units/ml) SC SCH ×2 (05:31→22:00)
[2022-02-11 05:42] LABS: BUN/Creatinine Ratio 21.5; Calcium 7.1 mg/dL (8.5-10.1); Potassium 4.1 mmol/L (3.5-5.1)
[2022-02-11] MEDS: DOPamine 1600MCG/ML D5W 250 ML IV SCH (09:48)
[2022-02-11] MEDS: FLUCONAZOLE 200MG/100ML 100 ML IV SCH (09:48)
[2022-02-11] MEDS: ZINC SULFATE 220mg CAP or TAB PO SCH (09:49)
[2022-02-11] MEDS: MULTIPLE VITAMIN TAB PO SCH (09:49)
[2022-02-11] MEDS: ASCORBIC ACID 500 MG TAB PO SCH ×2 (09:49→22:54)
[2022-02-11] MEDS: ASPirin 81 mg TAB PO SCH (09:49)
[2022-02-11 11:34] LABS: Mean Corpuscular Hemoglobin 25.1 pg (28.0-32.0)
[2022-02-11 11:36] LABS: Hematocrit 30.1 % (41.0-53.0); Hemoglobin 9.9 g/dL (13.5-17.5); Mean Corpuscular Volume 75.9 fL (80.0-100.0); Red Blood Cells 3.96 10^6/uL (4.5-5.90); Red Cell Distribution Width 18.9 % (11.8-14.3); White Blood Cell 5.6 10^3/uL (4.4-10.8)
[2022-02-11 11:43] LABS: Basophils % (manual) 0 (0.0-2.0); Blast Cells 0; Metamyelocytes % 0; Myelocytes % 0; Promyelocytes % 0; Reactive Lymphocytes 0
[2022-02-11 13:18] LABS: Lactic Acid w/Reflex 2.2 mmol/L (0.4-2.0)
[2022-02-11 13:29] LABS: Band Neutrophils % (manual) 10; Eosinophils % (manual) 1 (0-7); Lymphocytes % (manual) 11 (10.0-50.0); Monocytes % (manual) 6 (0-12)
[2022-02-11] MEDS ORDERED: METOCLOPRAMIDE HCL 5MG/ml INJ 2ml VIAL IV ONE (13:30)
[2022-02-11] MEDS ORDERED: VANCOMYCIN 1GM/250ML 250 ML IV SCH (17:00)
[2022-02-11] MEDS: LACTATED RINGER'S 1,000 ML IV SCH (20:06)
[2022-02-12] VITALS (70 sets, daily range): BP systolic 72–115; BP diastolic 48–74
[2022-02-12 05:01] LABS: Hematocrit 28.2 % (41.0-53.0); Hemoglobin 9.3 g/dL (13.5-17.5); Red Blood Cells 3.72 10^6/uL (4.5-5.90)
[2022-02-12 05:03] LABS: Mean Corpuscular Volume 75.8 fL (80.0-100.0); Red Cell Distribution Width 18.9 % (11.8-14.3); White Blood Cell 7.1 10^3/uL (4.4-10.8)
[2022-02-12] MEDS: LACTATED RINGER'S 1,000 ML IV SCH ×2 (05:15→20:47)
[2022-02-12 05:18] LABS: Basophils % (manual) 0 (0.0-2.0); Blast Cells 0; Metamyelocytes % 0; Myelocytes % 0; Promyelocytes % 0; Reactive Lymphocytes 0
[2022-02-12 05:28] LABS: Albumin 1.8 g/dL (3.4-5.0); BUN/Creatinine Ratio 21.2; Calcium 7.2 mg/dL (8.5-10.1); Potassium 3.5 mmol/L (3.5-5.1)
[2022-02-12 05:31] LABS: Total Protein 4.4 g/dL (6.4-8.2)
[2022-02-12] MEDS: ACCU-CHEK COMFORT CURVE STRIP VI SCH ×5 (06:00→23:54)
[2022-02-12] MEDS: InsuLIN REG 1unit/0.01ml Soln (100units/ml) SC SCH ×4 (06:00→18:00)
[2022-02-12] MEDS: PIPERACILLIN-TAZOB 2.25GM 50 ML IV SCH ×4 (06:47→20:46)
[2022-02-12] MEDS: INSULIN LANTUS (GLARGINE) 1 /0.01ml (100units/ml) SC SCH ×2 (06:59→22:00)
[2022-02-12 08:08] LABS: Band Neutrophils % (manual) 5; Eosinophils % (manual) 1 (0-7); Lymphocytes % (manual) 11 (10.0-50.0); Monocytes % (manual) 7 (0-12)
[2022-02-12] MEDS: ZINC SULFATE 220mg CAP or TAB PO SCH (10:00)
[2022-02-12] MEDS: ASCORBIC ACID 500 MG TAB PO SCH ×2 (10:00→22:00)
[2022-02-12] MEDS: ASPirin 81 mg TAB PO SCH (10:00)
[2022-02-12] MEDS ORDERED: METOCLOPRAMIDE HCL 5MG/ml INJ 2ml VIAL IV SCH (10:00)
[2022-02-12] MEDS: MULTIPLE VITAMIN TAB PO SCH (10:00)
[2022-02-12] MEDS: FLUCONAZOLE 200MG/100ML 100 ML IV SCH (10:17)
[2022-02-12 11:31] LABS: Hepatitis B Surface Antibody Negative (Negative)
[2022-02-12] MEDS ORDERED: GASTROGRAFIN 120 ML SOL ONE (11:35)
[2022-02-12] MEDS ORDERED: SODIUM CHLORIDE 0.9% 1,000 ML IV ONE (12:00)
[2022-02-12 12:07] LABS: Hepatitis A Total Antibody Negative (Negative)
[2022-02-12] MEDS ORDERED: LACTATED RINGER'S 1,000 ML IV SCH (12:45)
[2022-02-12] MEDS ORDERED: VANCOMYCIN 750mg/250ml 250 ML IV ONE (15:00)
[2022-02-12] MEDS ORDERED: TPN PER PHARMACY 0 ML IV SCH (18:15)
[2022-02-12] MEDS ORDERED: DEXTROSE (50%) 50ML SYRG IV SCH (20:15)
[2022-02-12] MEDS ORDERED: AMINO ACID INFUSION IN D10W 1,000 ML IV NR (20:30)
[2022-02-12] MEDS ORDERED: POTASSIUM CHL 20MEQ/100ML 100 ML IV ONE (20:30)
[2022-02-13] VITALS (53 sets, daily range): BP systolic 85–124; BP diastolic 50–79
[2022-02-13] MEDS: InsuLIN REG 1unit/0.01ml Soln (100units/ml) SC SCH ×5 (00:22→23:04)
[2022-02-13 04:47] LABS: Albumin 1.7 g/dL (3.4-5.0); Calcium 7.5 mg/dL (8.5-10.1); Magnesium 1.8 mg/dL (1.6-2.6)
[2022-02-13 04:52] LABS: Bilirubin, Total 0.7 mg/dL (0.2-1.0); Phosphorus 3.3 mg/dL (2.5-4.90); Total Protein 5.3 g/dL (6.4-8.2)
[2022-02-13 04:53] LABS: BUN/Creatinine Ratio 20.4; Potassium 6.2 mmol/L (3.5-5.1)
[2022-02-13] MEDS: NOREPINEPHRINE 8 MG/250ML KIT 250 ML IV SCH (05:15)
[2022-02-13] MEDS ORDERED: InsuLIN REG 1unit/0.01ml Soln (100units/ml) IV ONE (05:45)
[2022-02-13] MEDS ORDERED: SODIUM ZIRCONIUM CYCL 10 GM PAK PO ONE (05:45)
[2022-02-13] MEDS ORDERED: SODIUM BICARBONATE 8.4 % INJ 50ML VIAL IV ONE (05:45)
[2022-02-13] MEDS ORDERED: DEXTROSE (50%) 50ML SYRG IV ONE (05:45)
[2022-02-13] MEDS ORDERED: CALCIUM GLUC 1,000mg/50ml-NS 50 ML IV ONE (05:45)
[2022-02-13] MEDS: ACCU-CHEK COMFORT CURVE STRIP VI SCH ×4 (06:34→23:04)
[2022-02-13] MEDS: INSULIN LANTUS (GLARGINE) 1 /0.01ml (100units/ml) SC SCH ×2 (07:00→22:00)
[2022-02-13] MEDS: ASPirin 81 mg TAB PO SCH (09:07)
[2022-02-13] MEDS: ZINC SULFATE 220mg CAP or TAB PO SCH (09:08)
[2022-02-13] MEDS: ASCORBIC ACID 500 MG TAB PO SCH ×2 (09:08→22:00)
[2022-02-13] MEDS: MULTIPLE VITAMIN TAB PO SCH (09:08)
[2022-02-13] MEDS: FLUCONAZOLE 200MG/100ML 100 ML IV SCH (09:24)
[2022-02-13] MEDS: LACTATED RINGER'S 1,000 ML IV SCH ×3 (09:25→23:05)
[2022-02-13] MEDS: PANTOPRAZOLE 40 MG/10 ML VIAL INJ IV SCH (09:25)
[2022-02-13] MEDS ORDERED: POTASSIUM CHL 20MEQ/100ML 100 ML IV ONE (09:45)
[2022-02-13] MEDS: CEFTRIAXONE SODIUM 2 GM in D5W 5% 50 ML IV SCH (10:00)
[2022-02-13 14:39] LABS: Hemoglobin 9.3 g/dL (13.5-17.5); White Blood Cell 6.6 10^3/uL (4.4-10.8)
[2022-02-13 14:40] LABS: Hematocrit 29.3 % (41.0-53.0); Mean Corpuscular Hemoglobin 24.9 pg (28.0-32.0); Mean Corpuscular Hgb Conc. 31.8 g/dL (32.0-36.0); Mean Corpuscular Volume 78.3 fL (80.0-100.0); Red Blood Cells 3.74 10^6/uL (4.5-5.90); Red Cell Distribution Width 18.8 % (11.8-14.3)
[2022-02-13 14:46] LABS: Basophils % (manual) 0 (0.0-2.0); Blast Cells 0; Metamyelocytes % 0; Myelocytes % 0; Promyelocytes % 0; Reactive Lymphocytes 0
[2022-02-13 14:55] LABS: Alanine Aminotransferase 37 U/L (16-61); Albumin 1.5 g/dL (3.4-5.0); Anion Gap 11 (5-15); BUN/Creatinine Ratio 25.1; Blood Urea Nitrogen 65 mg/dL (7-18); Carbon Dioxide 27 mmol/L (21-32); Chloride 108 mmol/L (98-107); GFR African American 32 mL/min; GFR Non-African American 27 mL/min; Glucose 220 mg/dL (74-106); Potassium 3.2 mmol/L (3.5-5.1); Sodium 146 mmol/L (136-145)
[2022-02-13 15:04] LABS: Alkaline Phosphatase 71 U/L (45-117); Aspartate Aminotransferase 73 U/L (15-37); Bilirubin, Total 0.5 mg/dL (0.2-1.0); Total Protein 4.3 g/dL (6.4-8.2)
[2022-02-13 15:38] LABS: Band Neutrophils % (manual) 4; Eosinophils % (manual) 2 (0-7); Lymphocytes % (manual) 13 (10.0-50.0); Monocytes % (manual) 10 (0-12)
[2022-02-13] MEDS ORDERED: TPN PER PHARMACY IV NR ×9 (20:00)
[2022-02-14] VITALS (24 sets, daily range): BP systolic 86–118; BP diastolic 53–86
[2022-02-14 04:37] LABS: Basophils # (auto) 0 10 ^3/uL (0-0.2); Basophils % (auto) 0.3 % (0.0-2.0); Eosinophils # (auto) 0.2 10 ^3/uL (0-0.8); Lymphocytes # (auto) 0.6 10 ^3/uL (0.4-5.4); Mean Corpuscular Volume 77.5 fL (80.0-100.0); Red Cell Distribution Width 18.4 % (11.8-14.3)
[2022-02-14 04:39] LABS: Eosinophils % (auto) 2.6 % (0.0-7.0); Hematocrit 29.4 % (41.0-53.0); Hemoglobin 9.4 g/dL (13.5-17.5); Lymphocytes % (auto) 8.8 % (10.0-50.0); Mean Corpuscular Hemoglobin 24.9 pg (28.0-32.0); Mean Corpuscular Hgb Conc. 32.1 g/dL (32.0-36.0); Monocytes # (auto) 0.5 10 ^3/uL (0-1.3); Monocytes % (auto) 7.5 % (0.0-12.0); Neutrophils # (auto) 5.6 10 ^3/uL (1.6-8.6); Neutrophils % (auto) 80.8 % (37.0-80.0); Nucleated Red Blood Cells % 0.1 %; Red Blood Cells 3.79 10^6/uL (4.5-5.90)
[2022-02-14 04:55] LABS: Albumin 1.5 g/dL (3.4-5.0); BUN/Creatinine Ratio 27.2; Bilirubin, Total 0.4 mg/dL (0.2-1.0); Calcium 7.1 mg/dL (8.5-10.1); Magnesium 1.8 mg/dL (1.6-2.6); Phosphorus 2.1 mg/dL (2.5-4.90); Total Protein 4.3 g/dL (6.4-8.2)
[2022-02-14] MEDS: NOREPINEPHRINE 8 MG/250ML KIT 250 ML IV SCH (05:15)
[2022-02-14] MEDS: INSULIN LANTUS (GLARGINE) 1 /0.01ml (100units/ml) SC SCH ×2 (07:00→22:00)
[2022-02-14] MEDS: ACCU-CHEK COMFORT CURVE STRIP VI SCH ×4 (07:03→23:57)
[2022-02-14] MEDS: InsuLIN REG 1unit/0.01ml Soln (100units/ml) SC SCH ×3 (07:04→18:21)
[2022-02-14] MEDS: ZINC SULFATE 220mg CAP or TAB PO SCH (09:49)
[2022-02-14] MEDS: ASPirin 81 mg TAB PO SCH (09:49)
[2022-02-14] MEDS: ASCORBIC ACID 500 MG TAB PO SCH ×2 (09:50→23:02)
[2022-02-14] MEDS: PANTOPRAZOLE 40 MG/10 ML VIAL INJ IV SCH (09:52)
[2022-02-14] MEDS: FLUCONAZOLE 200MG/100ML 100 ML IV SCH (09:53)
[2022-02-14] MEDS ORDERED: POTASSIUM PHOSPHATE 44 MEQ in D5W 5% 250 ML IV ONE (10:00)
[2022-02-14] MEDS: LACTATED RINGER'S 1,000 ML IV SCH ×2 (10:15→18:36)
[2022-02-14] MEDS: CEFTRIAXONE SODIUM 2 GM in D5W 5% 50 ML IV SCH (11:03)
[2022-02-14] MEDS: VANCOMYCIN 500 MG in D5W 5% 100 ML IV SCH (14:41)
[2022-02-14] MEDS ORDERED: TPN PER PHARMACY IV NR ×9 (20:00)
[2022-02-15] VITALS (23 sets, daily range): BP systolic 87–112; BP diastolic 47–74
[2022-02-15] MEDS: POTASSIUM CHL 20MEQ/100ML 100 ML IV SCH ×3 (00:02→04:49)
[2022-02-15 04:00] LABS: Basophils # (auto) 0 10 ^3/uL (0-0.2); Eosinophils # (auto) 0.1 10 ^3/uL (0-0.8); Eosinophils % (auto) 0.6 % (0.0-7.0); Lymphocytes # (auto) 0.7 10 ^3/uL (0.4-5.4); Monocytes # (auto) 0.8 10 ^3/uL (0-1.3); Monocytes % (auto) 6.8 % (0.0-12.0); Neutrophils # (auto) 10.3 10 ^3/uL (1.6-8.6); Red Cell Distribution Width 18.5 % (11.8-14.3)
[2022-02-15 04:02] LABS: Basophils % (auto) 0.3 % (0.0-2.0); Hematocrit 29.4 % (41.0-53.0); Hemoglobin 9.5 g/dL (13.5-17.5); Mean Corpuscular Hemoglobin 24.5 pg (28.0-32.0); Mean Corpuscular Hgb Conc. 32.2 g/dL (32.0-36.0); Mean Corpuscular Volume 76.1 fL (80.0-100.0); Neutrophils % (auto) 86.3 % (37.0-80.0); Nucleated Red Blood Cells % 0.2 %; Red Blood Cells 3.87 10^6/uL (4.5-5.90)
[2022-02-15 04:22] LABS: Albumin 1.4 g/dL (3.4-5.0); Magnesium 1.8 mg/dL (1.6-2.6); Potassium 3.2 mmol/L (3.5-5.1)
[2022-02-15 04:26] LABS: BUN/Creatinine Ratio 23.8; Bilirubin, Total 0.4 mg/dL (0.2-1.0); Phosphorus 3.3 mg/dL (2.5-4.90); Total Protein 4.5 g/dL (6.4-8.2)
[2022-02-15] MEDS: NOREPINEPHRINE 8 MG/250ML KIT 250 ML IV SCH (05:15)
[2022-02-15] MEDS: LACTATED RINGER'S 1,000 ML IV SCH ×4 (05:45→18:33)
[2022-02-15] MEDS: ACCU-CHEK COMFORT CURVE STRIP VI SCH ×3 (06:44→18:03)
[2022-02-15] MEDS: InsuLIN REG 1unit/0.01ml Soln (100units/ml) SC SCH ×4 (06:48→18:04)
[2022-02-15] MEDS: INSULIN LANTUS (GLARGINE) 1 /0.01ml (100units/ml) SC SCH ×2 (07:00→21:04)
[2022-02-15] MEDS ORDERED: POTASSIUM CHL 20MEQ/100ML 100 ML IV SCH (09:00)
[2022-02-15] MEDS: ASPirin 81 mg TAB PO SCH (10:00)
[2022-02-15] MEDS: ZINC SULFATE 220mg CAP or TAB PO SCH (10:17)
[2022-02-15] MEDS: FLUCONAZOLE 200MG/100ML 100 ML IV SCH (10:17)
[2022-02-15] MEDS: ASCORBIC ACID 500 MG TAB PO SCH ×2 (10:17→21:05)
[2022-02-15] MEDS: PANTOPRAZOLE 40 MG/10 ML VIAL INJ IV SCH (10:17)
[2022-02-15] MEDS: CEFTRIAXONE SODIUM 2 GM in D5W 5% 50 ML IV SCH (12:16)
[2022-02-15 15:46] LABS: Hepatitis C Antibody Negative (Negative)
[2022-02-15] MEDS ORDERED: TPN PER PHARMACY IV NR ×11 (20:00)
[2022-02-16] VITALS (24 sets, daily range): BP systolic 90–117; BP diastolic 53–74
[2022-02-16] MEDS: InsuLIN REG 1unit/0.01ml Soln (100units/ml) SC SCH ×5 (00:25→23:31)
[2022-02-16] MEDS: ACCU-CHEK COMFORT CURVE STRIP VI SCH ×5 (00:25→23:32)
[2022-02-16] MEDS: NOREPINEPHRINE 8 MG/250ML KIT 250 ML IV SCH (03:50)
[2022-02-16 04:12] LABS: Basophils # (auto) 0.1 10 ^3/uL (0-0.2); Basophils % (auto) 0.4 % (0.0-2.0); Eosinophils # (auto) 0.2 10 ^3/uL (0-0.8); Eosinophils % (auto) 1.2 % (0.0-7.0); Hemoglobin 8.3 g/dL (13.5-17.5); Lymphocytes % (auto) 7.8 % (10.0-50.0); Mean Corpuscular Hemoglobin 24.4 pg (28.0-32.0); Mean Corpuscular Volume 76.2 fL (80.0-100.0); Monocytes # (auto) 0.9 10 ^3/uL (0-1.3); Monocytes % (auto) 6.9 % (0.0-12.0); Neutrophils # (auto) 10.7 10 ^3/uL (1.6-8.6); Neutrophils % (auto) 83.7 % (37.0-80.0); Red Blood Cells 3.41 10^6/uL (4.5-5.90); Red Cell Distribution Width 18.6 % (11.8-14.3); White Blood Cell 12.8 10^3/uL (4.4-10.8)
[2022-02-16 04:28] LABS: INR 1.14 (0.9-1.15); Partial Thromboplastin Time 27.3 sec (24.6-33.4)
[2022-02-16 04:56] LABS: Albumin 1.2 g/dL (3.4-5.0); Potassium 3.2 mmol/L (3.5-5.1)
[2022-02-16 04:59] LABS: Bilirubin, Total 0.4 mg/dL (0.2-1.0); Phosphorus 4.1 mg/dL (2.5-4.90); Total Protein 4.3 g/dL (6.4-8.2)
[2022-02-16 05:05] LABS: BUN/Creatinine Ratio 24.4
[2022-02-16] MEDS: INSULIN LANTUS (GLARGINE) 1 /0.01ml (100units/ml) SC SCH ×2 (06:17→21:55)
[2022-02-16] MEDS: LACTATED RINGER'S 1,000 ML IV SCH ×2 (08:30→19:52)
[2022-02-16] MEDS: ZINC SULFATE 220mg CAP or TAB PO SCH (09:27)
[2022-02-16] MEDS: ASCORBIC ACID 500 MG TAB PO SCH ×2 (09:27→21:55)
[2022-02-16] MEDS: ASPirin 81 mg TAB PO SCH (09:30)
[2022-02-16] MEDS: POTASSIUM CHL 20MEQ/100ML 100 ML IV SCH ×4 (10:15→20:21)
[2022-02-16] MEDS: FLUCONAZOLE 200MG/100ML 100 ML IV SCH (10:24)
[2022-02-16] MEDS: PANTOPRAZOLE 40 MG/10 ML VIAL INJ IV SCH (10:25)
[2022-02-16] MEDS: CEFTRIAXONE SODIUM 2 GM in D5W 5% 50 ML IV SCH (10:25)
[2022-02-16] MEDS ORDERED: FLUMAZENIL 0.1 MG/ML INJ 10ML MDV IV ONE (12:23)
[2022-02-16] MEDS ORDERED: EPINEPHrine HCL 1 MG/1 ML AMP ONE (12:23)
[2022-02-16] MEDS ORDERED: NALOXONE HCL 0.4 MG/ML VIAL ONE (12:23)
[2022-02-16] MEDS ORDERED: diphenhdrAMINE HCL 50 MG/1 ML VL ONE (12:24)
[2022-02-16] MEDS ORDERED: MIDAZOLAM HCL 5 MG/ML-1ML VIAL ONE (12:24)
[2022-02-16] MEDS ORDERED: fentaNYL CITRATE 100 MCG/2 ML VL ONE (12:24)
[2022-02-16] MEDS: VANCOMYCIN 500 MG in D5W 5% 100 ML IV SCH (15:03)
[2022-02-16] MEDS ORDERED: diphenhdrAMINE HCL 50 MG/1 ML VL IV ONE (16:55)
[2022-02-16] MEDS ORDERED: fentaNYL CITRATE 100 MCG/2 ML VL IV ONE (16:55)
[2022-02-16] MEDS ORDERED: MIDAZOLAM HCL 5 MG/ML-1ML VIAL IV ONE (16:55)
[2022-02-16] MEDS ORDERED: FUROSEMIDE 20 MG/2 ML VIAL IV ONE (18:00)
[2022-02-16] MEDS ORDERED: methylPREDNISolone SOD SUCC 125 MG/2 ML VL IV ONE (19:00)
[2022-02-16] MEDS ORDERED: TPN PER PHARMACY IV NR ×10 (20:00)
[2022-02-17] VITALS (23 sets, daily range): BP systolic 94–133; BP diastolic 55–87
[2022-02-17] MEDS: NOREPINEPHRINE 8 MG/250ML KIT 250 ML IV SCH (02:53)
[2022-02-17 04:04] LABS: Basophils # (auto) 0 10 ^3/uL (0-0.2); Eosinophils # (auto) 0 10 ^3/uL (0-0.8); Hemoglobin 8.1 g/dL (13.5-17.5); Lymphocytes # (auto) 0.4 10 ^3/uL (0.4-5.4); Lymphocytes % (auto) 2.4 % (10.0-50.0); Monocytes # (auto) 0.2 10 ^3/uL (0-1.3); Red Blood Cells 3.24 10^6/uL (4.5-5.90)
[2022-02-17 04:05] LABS: Basophils % (auto) 0.2 % (0.0-2.0); Hematocrit 25.2 % (41.0-53.0); Mean Corpuscular Hgb Conc. 32.2 g/dL (32.0-36.0); Mean Corpuscular Volume 77.8 fL (80.0-100.0); Monocytes % (auto) 1.1 % (0.0-12.0); Neutrophils # (auto) 14.4 10 ^3/uL (1.6-8.6); Neutrophils % (auto) 96.3 % (37.0-80.0); Nucleated Red Blood Cells % 0.1 %; Red Cell Distribution Width 18.7 % (11.8-14.3); White Blood Cell 14.9 10^3/uL (4.4-10.8)
[2022-02-17 04:17] LABS: Albumin 1.3 g/dL (3.4-5.0); Calcium 7.2 mg/dL (8.5-10.1); Magnesium 2.2 mg/dL (1.6-2.6); Potassium 4.5 mmol/L (3.5-5.1)
[2022-02-17 04:23] LABS: Bilirubin, Total 0.5 mg/dL (0.2-1.0); Phosphorus 4.9 mg/dL (2.5-4.90); Total Protein 4.8 g/dL (6.4-8.2)
[2022-02-17] MEDS: INSULIN LANTUS (GLARGINE) 1 /0.01ml (100units/ml) SC SCH ×2 (05:51→21:13)
[2022-02-17] MEDS: InsuLIN REG 1unit/0.01ml Soln (100units/ml) SC SCH ×4 (06:29→23:31)
[2022-02-17] MEDS: ACCU-CHEK COMFORT CURVE STRIP VI SCH ×4 (06:29→23:31)
[2022-02-17] MEDS: ASCORBIC ACID 500 MG TAB PO SCH ×2 (10:00→20:56)
[2022-02-17] MEDS: FLUCONAZOLE 200MG/100ML 100 ML IV SCH (10:00)
[2022-02-17] MEDS: PANTOPRAZOLE 40 MG/10 ML VIAL INJ IV SCH (10:00)
[2022-02-17] MEDS: ZINC SULFATE 220mg CAP or TAB PO SCH (10:00)
[2022-02-17] MEDS: ASPirin 81 mg TAB PO SCH (10:00)
[2022-02-17] MEDS: HALOPERIDOL LACTATE 5 MG/ML INJ VIAL IV PRN (10:01)
[2022-02-17] MEDS: LACTATED RINGER'S 1,000 ML IV SCH ×2 (10:02→19:48)
[2022-02-17] MEDS: CEFTRIAXONE SODIUM 2 GM in D5W 5% 50 ML IV SCH (11:26)
[2022-02-17] MEDS ORDERED: FUROSEMIDE 20 MG/2 ML VIAL IV ONE (13:45)
[2022-02-17] MEDS ORDERED: TPN PER PHARMACY IV NR ×8 (20:00)
[2022-02-18] VITALS (48 sets, daily range): BP systolic 61–142; BP diastolic 22–115
[2022-02-18 04:43] LABS: Basophils # (auto) 0 10 ^3/uL (0-0.2); Basophils % (auto) 0.1 % (0.0-2.0); Eosinophils # (auto) 0 10 ^3/uL (0-0.8); Eosinophils % (auto) 0.1 % (0.0-7.0); Hematocrit 22.8 % (41.0-53.0); Hemoglobin 7.4 g/dL (13.5-17.5); Lymphocytes # (auto) 0.8 10 ^3/uL (0.4-5.4); Lymphocytes % (auto) 4.2 % (10.0-50.0); Mean Corpuscular Hgb Conc. 32.4 g/dL (32.0-36.0); Mean Corpuscular Volume 77.1 fL (80.0-100.0); Monocytes # (auto) 1.3 10 ^3/uL (0-1.3); Neutrophils # (auto) 16.2 10 ^3/uL (1.6-8.6); Neutrophils % (auto) 88.6 % (37.0-80.0); Red Blood Cells 2.96 10^6/uL (4.5-5.90); Red Cell Distribution Width 18.4 % (11.8-14.3); White Blood Cell 18.3 10^3/uL (4.4-10.8)
[2022-02-18 04:56] LABS: Albumin 1.5 g/dL (3.4-5.0); BUN/Creatinine Ratio 30.7; Calcium 7.4 mg/dL (8.5-10.1); Magnesium 2.4 mg/dL (1.6-2.6)
[2022-02-18] MEDS: MORPHINE SULFATE INJ 2 MG/ml SYRG IV PRN ×2 (04:58→11:26)
[2022-02-18 04:59] LABS: Bilirubin, Total 0.4 mg/dL (0.2-1.0); Phosphorus 4.2 mg/dL (2.5-4.90); Total Protein 4.8 g/dL (6.4-8.2)
[2022-02-18] MEDS ORDERED: VANCOMYCIN 500 MG in D5W 5% 100 ML IV SCH (05:00)
[2022-02-18] MEDS: NOREPINEPHRINE 8 MG/250ML KIT 250 ML IV SCH ×3 (05:13→21:23)
[2022-02-18] MEDS: InsuLIN REG 1unit/0.01ml Soln (100units/ml) SC SCH ×3 (06:00→18:00)
[2022-02-18] MEDS: INSULIN LANTUS (GLARGINE) 1 /0.01ml (100units/ml) SC SCH ×2 (06:00→22:31)
[2022-02-18] MEDS: ACCU-CHEK COMFORT CURVE STRIP VI SCH ×3 (06:01→18:00)
[2022-02-18] MEDS ORDERED: SODIUM CHLORIDE 0.9% 1,000 ML IV SCH (09:45)
[2022-02-18] MEDS: ZINC SULFATE 220mg CAP or TAB PO SCH (10:00)
[2022-02-18] MEDS: ASCORBIC ACID 500 MG TAB PO SCH ×2 (10:00→22:00)
[2022-02-18] MEDS: ASPirin 81 mg TAB PO SCH (10:00)
[2022-02-18] MEDS: PANTOPRAZOLE 40 MG/10 ML VIAL INJ IV SCH (10:06)
[2022-02-18] MEDS: FLUCONAZOLE 200MG/100ML 100 ML IV SCH (10:06)
[2022-02-18] MEDS: CEFTRIAXONE SODIUM 2 GM in D5W 5% 50 ML IV SCH (10:06)
[2022-02-18] MEDS: SODIUM CHLORIDE 0.9% 1,000 ML IV SCH ×2 (11:04→22:19)
[2022-02-18] MEDS ORDERED: SODIUM CHLORIDE 0.9% 250 ML IV ONE (13:45)
[2022-02-18] MEDS ORDERED: HYDROmorphone HCL 2 MG/ML VL/or syr ONE ×2 (15:19→16:56)
[2022-02-18] MEDS ORDERED: MIDAZOLAM HCL 2MG/2ML 2ml VIAL (1mg/ml) ONE (15:20)
[2022-02-18] MEDS ORDERED: ROCURONIUM 10MG/ML 10ML VIAL IV ONE (15:20)
[2022-02-18] MEDS ORDERED: fentaNYL CITRATE 100 MCG/2 ML VL ONE ×2 (15:20→17:16)
[2022-02-18] MEDS ORDERED: SODIUM CHLORIDE LOCK 20 ML ONE (15:20)
[2022-02-18] MEDS ORDERED: ETOMIDATE (2MG/ML) 20ML VIAL IV ONE (15:20)
[2022-02-18] MEDS ORDERED: DexAMETHasone SOD PHOS 10MG/1ML VIAL INJ ONE (15:20)
[2022-02-18] MEDS ORDERED: CALCIUM CHL(10%) 100MG/ML 10ML VIAL IV ONE (15:28)
[2022-02-18] MEDS ORDERED: ALBUMIN 5% 250 ML IV ONE ×4 (16:14→20:30)
[2022-02-18] MEDS ORDERED: TPN PER PHARMACY IV NR ×11 (20:00)
[2022-02-18] MEDS: PHENYLEPHRINE IV 250 ML IV SCH (21:21)
[2022-02-18 22:24] LABS: Hematocrit 42.8 % (41.0-53.0); Hemoglobin 13.5 g/dL (13.5-17.5)
[2022-02-18] MEDS ORDERED: SODIUM CHLORIDE 0.9% 500 ML IV ONE (22:55)
[2022-02-19] VITALS (104 sets, daily range): BP systolic 45–134; BP diastolic 33–80
[2022-02-19] MEDS: PHENYLEPHRINE IV 250 ML IV SCH ×4 (00:10→09:55)
[2022-02-19] MEDS: InsuLIN REG 1unit/0.01ml Soln (100units/ml) SC SCH ×4 (00:15→18:17)
[2022-02-19] MEDS: ACCU-CHEK COMFORT CURVE STRIP VI SCH ×5 (00:15→23:48)
[2022-02-19] MEDS: MORPHINE SULFATE INJ 2 MG/ml SYRG IV PRN ×2 (01:13→05:59)
[2022-02-19] MEDS ORDERED: VANCOMYCIN 500 MG in D5W 5% 100 ML IV SCH ×2 (05:00→23:00)
[2022-02-19] MEDS: NOREPINEPHRINE 8 MG/250ML KIT 250 ML IV SCH ×4 (05:27→20:34)
[2022-02-19 05:28] LABS: Red Cell Distribution Width 18.7 % (11.8-14.3)
[2022-02-19 05:30] LABS: Hematocrit 38.3 % (41.0-53.0); Hemoglobin 12.1 g/dL (13.5-17.5); Mean Corpuscular Hemoglobin 25.7 pg (28.0-32.0); Mean Corpuscular Hgb Conc. 31.6 g/dL (32.0-36.0); Mean Corpuscular Volume 81.4 fL (80.0-100.0)
[2022-02-19 05:59] LABS: White Blood Cell 32.2 10^3/uL (4.4-10.8)
[2022-02-19 06:01] LABS: Basophils % (manual) 0 (0.0-2.0); Blast Cells 0; Eosinophils % (manual) 0 (0-7); Metamyelocytes % 0; Myelocytes % 0; Promyelocytes % 0; Reactive Lymphocytes 0
[2022-02-19] MEDS: INSULIN LANTUS (GLARGINE) 1 /0.01ml (100units/ml) SC SCH ×2 (06:10→22:00)
[2022-02-19] MEDS ORDERED: fentaNYL Drip 2500mCg/250mlNS 250 ML IV ONE (08:14)
[2022-02-19] MEDS: fentaNYL Drip 2500mCg/250mlNS 250 ML IV SCH (08:23)
[2022-02-19 08:35] LABS: Band Neutrophils % (manual) 4; Lymphocytes % (manual) 10 (10.0-50.0); Monocytes % (manual) 8 (0-12)
[2022-02-19] MEDS: SODIUM BICARBONATE 50ML VIAL 100 ML in D5W 5% 1,000 ML IV SCH ×2 (09:05→20:32)
[2022-02-19] MEDS: ZINC SULFATE 220mg CAP or TAB PO SCH (10:00)
[2022-02-19] MEDS: ASPirin 81 mg TAB PO SCH (10:00)
[2022-02-19] MEDS: ASCORBIC ACID 500 MG TAB PO SCH (10:00)
[2022-02-19] MEDS: PANTOPRAZOLE 40 MG/10 ML VIAL INJ IV SCH (10:10)
[2022-02-19] MEDS: CEFTRIAXONE SODIUM 2 GM in D5W 5% 50 ML IV SCH (10:11)
[2022-02-19] MEDS: FLUCONAZOLE 200MG/100ML 100 ML IV SCH (10:11)
[2022-02-19 11:01] LABS: Potassium 5.2 mmol/L (3.5-5.1)
[2022-02-19 11:02] LABS: Albumin 1.4 g/dL (3.4-5.0); BUN/Creatinine Ratio 29.3; Magnesium 2.7 mg/dL (1.6-2.6); Total Protein 3.7 g/dL (6.4-8.2)
[2022-02-19] MEDS ORDERED: FLUCONAZOLE 200MG/100ML 100 ML IV ONE (12:30)
[2022-02-19] MEDS ORDERED: VANCOMYCIN PER PHARMACY 0 MG IV SCH (12:30)
[2022-02-19] MEDS: MEROPENEM 1GM IVPB 100 ML IV SCH (13:54)
[2022-02-19] MEDS ORDERED: metroNIDAZOLE 500MG/100ML 100 ML IV SCH (14:00)
[2022-02-19] MEDS ORDERED: MICAFUNGIN SODIUM 100 MG in SODIUM CHL 0.9% 100 ML IV SCH (14:00)
[2022-02-19] MEDS: MIDAZOLAM DRIP 50 mg/50mL 50 ML IV SCH (14:21)
[2022-02-19] MEDS: LINEZOLID 600MG/300ML 300 ML IV SCH (17:03)
[2022-02-19] MEDS ORDERED: SODIUM BICARBONATE 8.4 % INJ 50ML VIAL IV ONE (19:15)
[2022-02-19] MEDS ORDERED: TPN PER PHARMACY IV NR ×7 (20:00)
[2022-02-19] MEDS: MICAFUNGIN SODIUM 100 MG in SODIUM CHL 0.9% 100 ML IV SCH (21:11)
[2022-02-19] MEDS ORDERED: LINEZOLID 600MG/300ML 300 ML IV SCH (22:00)
[2022-02-20] VITALS (107 sets, daily range): BP systolic 58–136; BP diastolic 39–77
[2022-02-20] MEDS: InsuLIN REG 1unit/0.01ml Soln (100units/ml) SC SCH ×4 (00:22→17:54)
[2022-02-20] MEDS: MEROPENEM 1GM IVPB 100 ML IV SCH ×2 (02:14→15:03)
[2022-02-20 03:55] LABS: Hemoglobin 10.9 g/dL (13.5-17.5)
[2022-02-20 03:57] LABS: Hematocrit 33.5 % (41.0-53.0); Mean Corpuscular Hemoglobin 26.3 pg (28.0-32.0); Mean Corpuscular Hgb Conc. 32.6 g/dL (32.0-36.0); Mean Corpuscular Volume 80.7 fL (80.0-100.0); Red Blood Cells 4.15 10^6/uL (4.5-5.90); Red Cell Distribution Width 19.2 % (11.8-14.3)
[2022-02-20 04:17] LABS: BUN/Creatinine Ratio 27.1; Calcium 6.9 mg/dL (8.5-10.1); Magnesium 2.5 mg/dL (1.6-2.6)
[2022-02-20 04:31] LABS: Bilirubin, Total 1.6 mg/dL (0.2-1.0); Phosphorus 6.8 mg/dL (2.5-4.90); Total Protein 3.7 g/dL (6.4-8.2)
[2022-02-20 04:38] LABS: White Blood Cell 36.3 10^3/uL (4.4-10.8)
[2022-02-20 04:39] LABS: Basophils % (manual) 0 (0.0-2.0); Blast Cells 0; Eosinophils % (manual) 0 (0-7); Metamyelocytes % 0; Myelocytes % 0; Promyelocytes % 0; Reactive Lymphocytes 0
[2022-02-20] MEDS: LINEZOLID 600MG/300ML 300 ML IV SCH ×2 (05:48→17:40)
[2022-02-20] MEDS: ACCU-CHEK COMFORT CURVE STRIP VI SCH ×3 (05:54→17:40)
[2022-02-20] MEDS: INSULIN LANTUS (GLARGINE) 1 /0.01ml (100units/ml) SC SCH (06:16)
[2022-02-20 07:28] LABS: Band Neutrophils % (manual) 6; Lymphocytes % (manual) 10 (10.0-50.0); Monocytes % (manual) 4 (0-12)
[2022-02-20] MEDS: SODIUM BICARBONATE 50ML VIAL 100 ML in D5W 5% 1,000 ML IV SCH (09:15)
[2022-02-20] MEDS: SODIUM BICARBONATE 50ML VIAL 50 ML in SOD CHL 0.45% 1,000 ML IV SCH ×2 (09:30→18:15)
[2022-02-20] MEDS: PANTOPRAZOLE 40 MG/10 ML VIAL INJ IV SCH (09:38)
[2022-02-20] MEDS: fentaNYL Drip 2500mCg/250mlNS 250 ML IV SCH (09:56)
[2022-02-20] MEDS ORDERED: FLUCONAZOLE 200MG/100ML 100 ML IV SCH (10:00)
[2022-02-20] MEDS: NOREPINEPHRINE 8 MG/250ML KIT 250 ML IV SCH ×2 (10:29→21:19)
[2022-02-20] MEDS: BUMETANIDE 2.5mg/10ml (0.25 mg/ml) INJ IV SCH ×2 (10:31→17:40)
[2022-02-20] MEDS: metroNIDAZOLE 500MG/100ML 100 ML IV SCH ×2 (11:15→20:30)
[2022-02-20] MEDS: PHENYLEPHRINE IV 250 ML IV SCH ×2 (12:21→20:00)
[2022-02-20] MEDS: MIDAZOLAM DRIP 50 mg/50mL 50 ML IV SCH (15:06)
[2022-02-20] MEDS ORDERED: TPN PER PHARMACY IV NR ×8 (20:00)
[2022-02-20] MEDS: MICAFUNGIN SODIUM 100 MG in SODIUM CHL 0.9% 100 ML IV SCH (21:52)
[2022-02-21] VITALS (107 sets, daily range): BP systolic 45–170; BP diastolic 33–87
[2022-02-21] MEDS: ACCU-CHEK COMFORT CURVE STRIP VI SCH ×4 (00:10→18:20)
[2022-02-21] MEDS: INSULIN LANTUS (GLARGINE) 1 /0.01ml (100units/ml) SC SCH ×3 (00:12→22:24)
[2022-02-21] MEDS: SODIUM BICARBONATE 50ML VIAL 50 ML in SOD CHL 0.45% 1,000 ML IV SCH ×4 (00:36→22:04)
[2022-02-21] MEDS: MIDAZOLAM DRIP 50 mg/50mL 50 ML IV SCH ×2 (00:36→10:06)
[2022-02-21] MEDS: MEROPENEM 1GM IVPB 100 ML IV SCH (02:16)
[2022-02-21 04:03] LABS: Mean Corpuscular Hemoglobin 25.9 pg (28.0-32.0)
[2022-02-21 04:05] LABS: Hematocrit 30.1 % (41.0-53.0); Hemoglobin 9.7 g/dL (13.5-17.5); Mean Corpuscular Hgb Conc. 32.4 g/dL (32.0-36.0); Mean Corpuscular Volume 79.9 fL (80.0-100.0); Red Blood Cells 3.76 10^6/uL (4.5-5.90); Red Cell Distribution Width 19.6 % (11.8-14.3); White Blood Cell 26.9 10^3/uL (4.4-10.8)
[2022-02-21 04:13] LABS: Basophils % (manual) 0 (0.0-2.0); Blast Cells 0; Metamyelocytes % 0; Myelocytes % 0; Promyelocytes % 0; Reactive Lymphocytes 0
[2022-02-21 04:23] LABS: Calcium 6.5 mg/dL (8.5-10.1); Magnesium 2.2 mg/dL (1.6-2.6); Potassium 4.9 mmol/L (3.5-5.1)
[2022-02-21 04:27] LABS: Bilirubin, Total 2.2 mg/dL (0.2-1.0); Phosphorus 7.4 mg/dL (2.5-4.90); Total Protein 3.1 g/dL (6.4-8.2)
[2022-02-21 04:39] LABS: Albumin 0.8 g/dL (3.4-5.0); BUN/Creatinine Ratio 26.1
[2022-02-21 05:30] LABS: Band Neutrophils % (manual) 6; Eosinophils % (manual) 1 (0-7); Lymphocytes % (manual) 4 (10.0-50.0); Monocytes % (manual) 4 (0-12)
[2022-02-21] MEDS: LINEZOLID 600MG/300ML 300 ML IV SCH ×2 (05:52→17:03)
[2022-02-21] MEDS: BUMETANIDE 2.5mg/10ml (0.25 mg/ml) INJ IV SCH ×2 (06:09→17:04)
[2022-02-21] MEDS: InsuLIN REG 1unit/0.01ml Soln (100units/ml) SC SCH ×4 (06:13→18:00)
[2022-02-21] MEDS: fentaNYL Drip 2500mCg/250mlNS 250 ML IV SCH ×2 (08:15→12:11)
[2022-02-21] MEDS: ALBUMIN 25% 100 ML IV SCH ×2 (10:05→17:04)
[2022-02-21] MEDS: PANTOPRAZOLE 40 MG/10 ML VIAL INJ IV SCH (10:06)
[2022-02-21] MEDS: PHENYLEPHRINE IV 250 ML IV SCH ×3 (10:07→21:00)
[2022-02-21] MEDS: MEROPENEM 500MG IVPB 50 ML IV SCH (15:28)
[2022-02-21] MEDS ORDERED: TPN PER PHARMACY IV NR ×9 (20:00)
[2022-02-21] MEDS: MICAFUNGIN SODIUM 100 MG in SODIUM CHL 0.9% 100 ML IV SCH (22:04)
[2022-02-22] VITALS (103 sets, daily range): BP systolic 72–172; BP diastolic 39–116
[2022-02-22] MEDS: ACCU-CHEK COMFORT CURVE STRIP VI SCH ×5 (00:15→23:46)
[2022-02-22] MEDS: NOREPINEPHRINE 8 MG/250ML KIT 250 ML IV SCH (00:21)
[2022-02-22] MEDS: InsuLIN REG 1unit/0.01ml Soln (100units/ml) SC SCH ×5 (00:28→23:48)
[2022-02-22] MEDS: ALBUMIN 25% 100 ML IV SCH (00:48)
[2022-02-22] MEDS: MEROPENEM 500MG IVPB 50 ML IV SCH ×2 (04:09→14:52)
[2022-02-22] MEDS: fentaNYL Drip 2500mCg/250mlNS 250 ML IV SCH (04:27)
[2022-02-22 04:35] LABS: Basophils # (auto) 0.1 10 ^3/uL (0-0.2); Eosinophils # (auto) 0.2 10 ^3/uL (0-0.8); Eosinophils % (auto) 1.3 % (0.0-7.0); Lymphocytes # (auto) 0.5 10 ^3/uL (0.4-5.4); Monocytes # (auto) 0.7 10 ^3/uL (0-1.3); Neutrophils # (auto) 11.9 10 ^3/uL (1.6-8.6)
[2022-02-22 04:36] LABS: Basophils % (auto) 0.9 % (0.0-2.0); Hematocrit 21.7 % (41.0-53.0); Mean Corpuscular Hemoglobin 25.9 pg (28.0-32.0); Mean Corpuscular Volume 80.9 fL (80.0-100.0); Monocytes % (auto) 5.5 % (0.0-12.0); Neutrophils % (auto) 88.3 % (37.0-80.0); Nucleated Red Blood Cells % 0.1 %; Red Blood Cells 2.68 10^6/uL (4.5-5.90); Red Cell Distribution Width 19.4 % (11.8-14.3); White Blood Cell 13.5 10^3/uL (4.4-10.8)
[2022-02-22 04:53] LABS: Albumin 1.6 g/dL (3.4-5.0); BUN/Creatinine Ratio 22.1; Calcium 6.8 mg/dL (8.5-10.1); Magnesium 2.1 mg/dL (1.6-2.6)
[2022-02-22 04:55] LABS: Bilirubin, Total 2.2 mg/dL (0.2-1.0); Phosphorus 6.9 mg/dL (2.5-4.90); Total Protein 3.7 g/dL (6.4-8.2)
[2022-02-22 05:00] LABS: Hemoglobin 6.9 g/dL (13.5-17.5)
[2022-02-22] MEDS: PHENYLEPHRINE IV 250 ML IV SCH ×3 (05:20→22:00)
[2022-02-22] MEDS: LINEZOLID 600MG/300ML 300 ML IV SCH (05:52)
[2022-02-22] MEDS: BUMETANIDE 2.5mg/10ml (0.25 mg/ml) INJ IV SCH (05:53)
[2022-02-22] MEDS: MIDAZOLAM DRIP 50 mg/50mL 50 ML IV SCH ×3 (06:33→23:46)
[2022-02-22] MEDS: INSULIN LANTUS (GLARGINE) 1 /0.01ml (100units/ml) SC SCH ×2 (07:00→22:25)
[2022-02-22] MEDS: PANTOPRAZOLE 40 MG/10 ML VIAL INJ IV SCH (10:11)
[2022-02-22] MEDS: SODIUM BICARBONATE 50ML VIAL 50 ML in SOD CHL 0.45% 1,000 ML IV SCH ×2 (12:12→19:37)
[2022-02-22] MEDS ORDERED: metroNIDAZOLE 500MG/100ML 100 ML IV SCH (19:45)
[2022-02-22] MEDS ORDERED: TPN PER PHARMACY IV NR ×9 (20:00)
[2022-02-22] MEDS: MICAFUNGIN SODIUM 100 MG in SODIUM CHL 0.9% 100 ML IV SCH (20:47)
[2022-02-22] MEDS: TPN PER PHARMACY IV NR ×9 (20:49)
[2022-02-22] MEDS: metroNIDAZOLE 500MG/100ML 100 ML IV SCH (20:56)
[2022-02-22] MEDS: CEFTRIAXONE SODIUM 2 GM in D5W 5% 50 ML IV SCH (22:07)
[2022-02-23] VITALS (104 sets, daily range): BP systolic 93–154; BP diastolic 48–100
[2022-02-23] MEDS: SODIUM BICARBONATE 50ML VIAL 50 ML in SOD CHL 0.45% 1,000 ML IV SCH ×3 (03:32→23:37)
[2022-02-23] MEDS: metroNIDAZOLE 500MG/100ML 100 ML IV SCH ×3 (05:12→21:06)
[2022-02-23 06:12] LABS: Hematocrit 27.8 % (41.0-53.0); Hemoglobin 9.2 g/dL (13.5-17.5)
[2022-02-23] MEDS: PHENYLEPHRINE IV 250 ML IV SCH ×3 (06:20→23:00)
[2022-02-23] MEDS: ACCU-CHEK COMFORT CURVE STRIP VI SCH ×4 (06:32→23:55)
[2022-02-23] MEDS: InsuLIN REG 1unit/0.01ml Soln (100units/ml) SC SCH ×4 (06:32→23:55)
[2022-02-23] MEDS: fentaNYL Drip 2500mCg/250mlNS 250 ML IV SCH (06:32)
[2022-02-23] MEDS: INSULIN LANTUS (GLARGINE) 1 /0.01ml (100units/ml) SC SCH ×2 (06:32→21:14)
[2022-02-23 06:33] LABS: Potassium 4.1 mmol/L (3.5-5.1)
[2022-02-23] MEDS: NOREPINEPHRINE 8 MG/250ML KIT 250 ML IV SCH (06:35)
[2022-02-23] MEDS: MIDAZOLAM DRIP 50 mg/50mL 50 ML IV SCH ×2 (06:41→23:38)
[2022-02-23 06:46] LABS: Albumin 1.2 g/dL (3.4-5.0); BUN/Creatinine Ratio 23.5; Bilirubin, Total 1.8 mg/dL (0.2-1.0); Calcium 7.1 mg/dL (8.5-10.1); Phosphorus 6.6 mg/dL (2.5-4.90); Total Protein 3.8 g/dL (6.4-8.2)
[2022-02-23] MEDS ORDERED: SODIUM CHL 0.9% 1000 ML BAG XX ONE (07:00)
[2022-02-23] MEDS: BUMETANIDE 1mg/4ml VIAL (0.25mg/ml) IV SCH (10:00)
[2022-02-23] MEDS: CEFTRIAXONE SODIUM 2 GM in D5W 5% 50 ML IV SCH (10:11)
[2022-02-23] MEDS: PANTOPRAZOLE 40 MG/10 ML VIAL INJ IV SCH (10:11)
[2022-02-23] MEDS: ALBUMIN 25% 100 ML IV SCH ×2 (12:13→13:28)
[2022-02-23] MEDS: LINEZOLID 600MG/300ML 300 ML IV SCH ×2 (13:48→22:16)
[2022-02-23] MEDS: TPN PER PHARMACY IV NR ×9 (19:56)
[2022-02-23] MEDS ORDERED: TPN PER PHARMACY IV NR ×10 (20:00)
[2022-02-23] MEDS: MICAFUNGIN SODIUM 100 MG in SODIUM CHL 0.9% 100 ML IV SCH (20:28)
[2022-02-23] MEDS ORDERED: EPOETIN ALFA-EPBX 10,000 UNIT/1ML VIAL SC ONE (21:00)
[2022-02-24] VITALS (107 sets, daily range): BP systolic 83–131; BP diastolic 46–76
[2022-02-24] MEDS: fentaNYL Drip 2500mCg/250mlNS 250 ML IV SCH ×2 (03:20→19:26)
[2022-02-24 04:51] LABS: Potassium 3.4 mmol/L (3.5-5.1)
[2022-02-24 04:55] LABS: Albumin 1.5 g/dL (3.4-5.0); BUN/Creatinine Ratio 18.3; Calcium 6.9 mg/dL (8.5-10.1); Magnesium 1.8 mg/dL (1.6-2.6)
[2022-02-24 05:06] LABS: Bilirubin, Total 1.7 mg/dL (0.2-1.0); Phosphorus 4.1 mg/dL (2.5-4.90); Total Protein 3.8 g/dL (6.4-8.2)
[2022-02-24] MEDS: SODIUM BICARBONATE 50ML VIAL 50 ML in SOD CHL 0.45% 1,000 ML IV SCH ×3 (05:09→13:29)
[2022-02-24] MEDS: InsuLIN REG 1unit/0.01ml Soln (100units/ml) SC SCH ×3 (05:37→17:59)
[2022-02-24] MEDS: ACCU-CHEK COMFORT CURVE STRIP VI SCH ×3 (05:38→17:59)
[2022-02-24] MEDS: metroNIDAZOLE 500MG/100ML 100 ML IV SCH ×3 (05:40→21:09)
[2022-02-24] MEDS: INSULIN LANTUS (GLARGINE) 1 /0.01ml (100units/ml) SC SCH ×2 (06:04→21:03)
[2022-02-24] MEDS: NOREPINEPHRINE 8 MG/250ML KIT 250 ML IV SCH ×2 (06:06→19:22)
[2022-02-24] MEDS: PHENYLEPHRINE IV 250 ML IV SCH ×3 (07:20→23:34)
[2022-02-24] MEDS ORDERED: POTASSIUM CHL 20MEQ/100ML 100 ML IV ONE (09:00)
[2022-02-24] MEDS: CEFTRIAXONE SODIUM 2 GM in D5W 5% 50 ML IV SCH (10:07)
[2022-02-24] MEDS: BUMETANIDE 1mg/4ml VIAL (0.25mg/ml) IV SCH (10:08)
[2022-02-24] MEDS: PANTOPRAZOLE 40 MG/10 ML VIAL INJ IV SCH (10:09)
[2022-02-24] MEDS: LINEZOLID 600MG/300ML 300 ML IV SCH ×2 (10:22→22:22)
[2022-02-24] MEDS: MIDAZOLAM DRIP 50 mg/50mL 50 ML IV SCH ×2 (11:37→19:30)
[2022-02-24] MEDS: BUMETANIDE INJECTION 12.5 MG in GIVE UN-DILUTED 0 ML IV SCH (14:35)
[2022-02-24] MEDS ORDERED: TPN PER PHARMACY IV NR ×10 (20:00)
[2022-02-24] MEDS: MICAFUNGIN SODIUM 100 MG in SODIUM CHL 0.9% 100 ML IV SCH (20:33)
[2022-02-25] VITALS (104 sets, daily range): BP systolic 85–158; BP diastolic 47–97
[2022-02-25] MEDS: ACCU-CHEK COMFORT CURVE STRIP VI SCH ×4 (00:25→17:13)
[2022-02-25 03:36] LABS: Eosinophils # (auto) 0.1 10 ^3/uL (0-0.8); Hemoglobin 9.3 g/dL (13.5-17.5)
[2022-02-25 03:39] LABS: Basophils # (auto) 0.1 10 ^3/uL (0-0.2); Basophils % (auto) 0.5 % (0.0-2.0); Eosinophils % (auto) 0.6 % (0.0-7.0); Hematocrit 27.2 % (41.0-53.0); Lymphocytes # (auto) 0.6 10 ^3/uL (0.4-5.4); Lymphocytes % (auto) 3.6 % (10.0-50.0); Mean Corpuscular Hemoglobin 27.2 pg (28.0-32.0); Mean Corpuscular Hgb Conc. 34.1 g/dL (32.0-36.0); Mean Corpuscular Volume 79.9 fL (80.0-100.0); Monocytes # (auto) 1.2 10 ^3/uL (0-1.3); Monocytes % (auto) 7.1 % (0.0-12.0); Neutrophils # (auto) 15.2 10 ^3/uL (1.6-8.6); Neutrophils % (auto) 88.2 % (37.0-80.0); Red Cell Distribution Width 19.6 % (11.8-14.3); White Blood Cell 17.3 10^3/uL (4.4-10.8)
[2022-02-25 03:47] LABS: Potassium 3.6 mmol/L (3.5-5.1)
[2022-02-25 03:51] LABS: Albumin 1.2 g/dL (3.4-5.0); BUN/Creatinine Ratio 17.4; Magnesium 1.9 mg/dL (1.6-2.6)
[2022-02-25 03:53] LABS: Bilirubin, Total 1.9 mg/dL (0.2-1.0); Phosphorus 3.7 mg/dL (2.5-4.90); Total Protein 3.8 g/dL (6.4-8.2)
[2022-02-25] MEDS: MIDAZOLAM DRIP 50 mg/50mL 50 ML IV SCH ×2 (04:42→14:48)
[2022-02-25] MEDS: metroNIDAZOLE 500MG/100ML 100 ML IV SCH ×3 (05:35→22:32)
[2022-02-25] MEDS: INSULIN LANTUS (GLARGINE) 1 /0.01ml (100units/ml) SC SCH ×2 (06:11→22:00)
[2022-02-25] MEDS: InsuLIN REG 1unit/0.01ml Soln (100units/ml) SC SCH ×4 (06:12→17:14)
[2022-02-25] MEDS: NOREPINEPHRINE 8 MG/250ML KIT 250 ML IV SCH ×2 (06:26→21:29)
[2022-02-25] MEDS: PHENYLEPHRINE IV 250 ML IV SCH ×2 (07:34→09:19)
[2022-02-25] MEDS: PANTOPRAZOLE 40 MG/10 ML VIAL INJ IV SCH (08:55)
[2022-02-25] MEDS: LINEZOLID 600MG/300ML 300 ML IV SCH (08:55)
[2022-02-25] MEDS: CEFTRIAXONE SODIUM 2 GM in D5W 5% 50 ML IV SCH (08:55)
[2022-02-25] MEDS: SODIUM BICARBONATE 50ML VIAL 50 ML in SOD CHL 0.45% 1,000 ML IV SCH (10:15)
[2022-02-25] MEDS: POTASSIUM CHL 20MEQ/100ML 100 ML IV SCH ×2 (10:15→12:55)
[2022-02-25] MEDS: BUMETANIDE INJECTION 12.5 MG in GIVE UN-DILUTED 0 ML IV SCH (13:15)
[2022-02-25] MEDS: ALBUMIN 25% 100 ML IV SCH ×2 (14:27→20:20)
[2022-02-25] MEDS: fentaNYL Drip 2500mCg/250mlNS 250 ML IV SCH (14:49)
[2022-02-25] MEDS ORDERED: TPN PER PHARMACY IV NR ×10 (20:00)
[2022-02-25] MEDS: MICAFUNGIN SODIUM 100 MG in SODIUM CHL 0.9% 100 ML IV SCH (20:55)
[2022-02-25] MEDS ORDERED: ALBUTEROL SULF 2.5 MG/0.5ML(0.5%) NEB SOLN NEB PRN (23:15)
[2022-02-26] VITALS (108 sets, daily range): BP systolic 90–151; BP diastolic 43–74
[2022-02-26] MEDS: LINEZOLID 600MG/300ML 300 ML IV SCH ×2 (00:03→07:25)
[2022-02-26] MEDS: ACCU-CHEK COMFORT CURVE STRIP VI SCH ×4 (00:22→17:08)
[2022-02-26] MEDS: InsuLIN REG 1unit/0.01ml Soln (100units/ml) SC SCH ×4 (00:23→17:46)
[2022-02-26] MEDS: ALBUTEROL SULF 2.5 MG/0.5ML(0.5%) NEB SOLN NEB SCH ×4 (00:38→18:30)
[2022-02-26] MEDS: PHENYLEPHRINE IV 250 ML IV SCH ×3 (01:00→07:29)
[2022-02-26 04:54] LABS: Lymphocytes # (auto) 0.6 10 ^3/uL (0.4-5.4); Monocytes % (auto) 7.6 % (0.0-12.0); Nucleated Red Blood Cells % 0.1 %
[2022-02-26 04:55] LABS: Basophils # (auto) 0 10 ^3/uL (0-0.2); Basophils % (auto) 0.4 % (0.0-2.0); Eosinophils # (auto) 0.2 10 ^3/uL (0-0.8); Eosinophils % (auto) 1.4 % (0.0-7.0); Hematocrit 25.1 % (41.0-53.0); Hemoglobin 8.5 g/dL (13.5-17.5); Mean Corpuscular Hemoglobin 27.5 pg (28.0-32.0); Mean Corpuscular Volume 80.9 fL (80.0-100.0); Monocytes # (auto) 0.9 10 ^3/uL (0-1.3); Neutrophils # (auto) 9.7 10 ^3/uL (1.6-8.6); Neutrophils % (auto) 85.6 % (37.0-80.0); White Blood Cell 11.4 10^3/uL (4.4-10.8)
[2022-02-26] MEDS: ALBUMIN 25% 100 ML IV SCH (04:56)
[2022-02-26] MEDS: MIDAZOLAM DRIP 50 mg/50mL 50 ML IV SCH (04:57)
[2022-02-26] MEDS: fentaNYL Drip 2500mCg/250mlNS 250 ML IV SCH (05:12)
[2022-02-26 05:13] LABS: Red Cell Distribution Width 20.1 % (11.8-14.3)
[2022-02-26 05:20] LABS: Albumin 1.8 g/dL (3.4-5.0); Calcium 7.6 mg/dL (8.5-10.1); Magnesium 1.8 mg/dL (1.6-2.6); Potassium 3.6 mmol/L (3.5-5.1)
[2022-02-26 05:25] LABS: BUN/Creatinine Ratio 19.2; Bilirubin, Total 2.1 mg/dL (0.2-1.0); Phosphorus 3.6 mg/dL (2.5-4.90); Total Protein 4.5 g/dL (6.4-8.2)
[2022-02-26] MEDS: metroNIDAZOLE 500MG/100ML 100 ML IV SCH ×3 (06:17→22:39)
[2022-02-26] MEDS: SODIUM BICARBONATE 50ML VIAL 50 ML in SOD CHL 0.45% 1,000 ML IV SCH (06:20)
[2022-02-26] MEDS: BUMETANIDE INJECTION 12.5 MG in GIVE UN-DILUTED 0 ML IV SCH (06:23)
[2022-02-26] MEDS: INSULIN LANTUS (GLARGINE) 1 /0.01ml (100units/ml) SC SCH ×2 (07:23→22:50)
[2022-02-26] MEDS: CEFTRIAXONE SODIUM 2 GM in D5W 5% 50 ML IV SCH (08:22)
[2022-02-26] MEDS: PANTOPRAZOLE 40 MG/10 ML VIAL INJ IV SCH (08:22)
[2022-02-26 13:56] LABS: INR 1.71 (0.9-1.15); Partial Thromboplastin Time 38.8 sec (24.6-33.4)
[2022-02-26] MEDS ORDERED: DAPTOmycin 500 MG in SODIUM CHL 0.9% 50 ML IV SCH (17:00)
[2022-02-26] MEDS: BUMETANIDE 2.5mg/10ml (0.25 mg/ml) INJ IV SCH (17:08)
[2022-02-26] MEDS ORDERED: VANCOMYCIN PER PHARMACY 0 MG IV SCH (19:00)
[2022-02-26] MEDS ORDERED: TPN PER PHARMACY IV NR ×8 (20:00)
[2022-02-26] MEDS ORDERED: VANCOMYCIN 1GM/250ML 250 ML IV ONE (20:45)
[2022-02-26] MEDS: MICAFUNGIN SODIUM 100 MG in SODIUM CHL 0.9% 100 ML IV SCH (20:58)
[2022-02-26] MEDS: SODIUM CHLOR 0.9% PF (SALINE LOCK) 10ML VIAL/SYR IV SCH (22:39)
[2022-02-26] MEDS: NOREPINEPHRINE 8 MG/250ML KIT 250 ML IV SCH (22:56)
[2022-02-27] VITALS (108 sets, daily range): BP systolic 70–161; BP diastolic 42–85
[2022-02-27] MEDS: InsuLIN REG 1unit/0.01ml Soln (100units/ml) SC SCH ×4 (00:17→17:25)
[2022-02-27] MEDS: ACCU-CHEK COMFORT CURVE STRIP VI SCH ×4 (00:17→17:25)
[2022-02-27] MEDS: fentaNYL Drip 2500mCg/250mlNS 250 ML IV SCH (01:55)
[2022-02-27] MEDS: ALBUTEROL SULF 2.5 MG/0.5ML(0.5%) NEB SOLN NEB SCH ×4 (01:56→18:25)
[2022-02-27] MEDS: PHENYLEPHRINE IV 250 ML IV SCH ×3 (02:00→10:56)
[2022-02-27 04:42] LABS: Eosinophils # (auto) 0.2 10 ^3/uL (0-0.8); Mean Corpuscular Volume 79.8 fL (80.0-100.0)
[2022-02-27 05:06] LABS: Albumin 1.7 g/dL (3.4-5.0); BUN/Creatinine Ratio 17.2; Calcium 7.4 mg/dL (8.5-10.1); Magnesium 2.1 mg/dL (1.6-2.6); Potassium 3.9 mmol/L (3.5-5.1)
[2022-02-27 05:09] LABS: Bilirubin, Total 2.4 mg/dL (0.2-1.0); Phosphorus 4.7 mg/dL (2.5-4.90)
[2022-02-27 05:12] LABS: Basophils # (auto) 0 10 ^3/uL (0-0.2); Basophils % (auto) 0.4 % (0.0-2.0); Eosinophils % (auto) 1.3 % (0.0-7.0); Hematocrit 27.4 % (41.0-53.0); Hemoglobin 9.2 g/dL (13.5-17.5); Lymphocytes # (auto) 0.6 10 ^3/uL (0.4-5.4); Lymphocytes % (auto) 5.4 % (10.0-50.0); Mean Corpuscular Hemoglobin 26.9 pg (28.0-32.0); Mean Corpuscular Hgb Conc. 33.7 g/dL (32.0-36.0); Monocytes # (auto) 0.9 10 ^3/uL (0-1.3); Monocytes % (auto) 7.8 % (0.0-12.0); Neutrophils # (auto) 9.7 10 ^3/uL (1.6-8.6); Neutrophils % (auto) 85.1 % (37.0-80.0); Nucleated Red Blood Cells % 0.1 %; Red Blood Cells 3.44 10^6/uL (4.5-5.90); Red Cell Distribution Width 19.9 % (11.8-14.3); White Blood Cell 11.4 10^3/uL (4.4-10.8)
[2022-02-27] MEDS: metroNIDAZOLE 500MG/100ML 100 ML IV SCH ×3 (05:40→21:53)
[2022-02-27] MEDS: BUMETANIDE 2.5mg/10ml (0.25 mg/ml) INJ IV SCH ×2 (05:41→17:28)
[2022-02-27] MEDS: INSULIN LANTUS (GLARGINE) 1 /0.01ml (100units/ml) SC SCH ×2 (06:48→21:59)
[2022-02-27] MEDS: MIDAZOLAM DRIP 50 mg/50mL 50 ML IV SCH (08:15)
[2022-02-27] MEDS: SODIUM CHLOR 0.9% PF (SALINE LOCK) 10ML VIAL/SYR IV SCH ×2 (08:21→21:53)
[2022-02-27] MEDS: PANTOPRAZOLE 40 MG/10 ML VIAL INJ IV SCH (08:26)
[2022-02-27] MEDS: CEFTRIAXONE SODIUM 2 GM in D5W 5% 50 ML IV SCH (08:26)
[2022-02-27] MEDS: ACETYLCYSTEINE 20%(200MG/ML) SOL 4ML NEB SCH (14:00)
[2022-02-27] MEDS ORDERED: TPN PER PHARMACY IV NR ×7 (20:00)
[2022-02-27] MEDS: MICAFUNGIN SODIUM 100 MG in SODIUM CHL 0.9% 100 ML IV SCH (20:22)
[2022-02-28] VITALS (104 sets, daily range): BP systolic 67–118; BP diastolic 44–78
[2022-02-28] MEDS: ALBUTEROL SULF 2.5 MG/0.5ML(0.5%) NEB SOLN NEB SCH ×4 (00:09→18:48)
[2022-02-28] MEDS: ACETYLCYSTEINE 20%(200MG/ML) SOL 4ML NEB SCH ×4 (00:09→18:48)
[2022-02-28] MEDS: ACCU-CHEK COMFORT CURVE STRIP VI SCH ×4 (00:15→17:26)
[2022-02-28] MEDS: InsuLIN REG 1unit/0.01ml Soln (100units/ml) SC SCH ×4 (00:18→17:26)
[2022-02-28 04:06] LABS: Basophils # (auto) 0.1 10 ^3/uL (0-0.2); Eosinophils # (auto) 0.1 10 ^3/uL (0-0.8); Lymphocytes # (auto) 0.9 10 ^3/uL (0.4-5.4)
[2022-02-28 04:08] LABS: Basophils % (auto) 0.8 % (0.0-2.0); Eosinophils % (auto) 1.2 % (0.0-7.0); Hemoglobin 9.4 g/dL (13.5-17.5); Mean Corpuscular Hemoglobin 26.7 pg (28.0-32.0); Mean Corpuscular Hgb Conc. 33.5 g/dL (32.0-36.0); Mean Corpuscular Volume 79.7 fL (80.0-100.0); Monocytes # (auto) 1.6 10 ^3/uL (0-1.3); Monocytes % (auto) 12.8 % (0.0-12.0); Neutrophils # (auto) 9.9 10 ^3/uL (1.6-8.6); Neutrophils % (auto) 78.2 % (37.0-80.0); Nucleated Red Blood Cells % 0.2 %; Red Blood Cells 3.51 10^6/uL (4.5-5.90); White Blood Cell 12.7 10^3/uL (4.4-10.8)
[2022-02-28 04:09] LABS: Red Cell Distribution Width 20.3 % (11.8-14.3)
[2022-02-28] MEDS: metroNIDAZOLE 500MG/100ML 100 ML IV SCH ×3 (06:07→22:18)
[2022-02-28] MEDS: INSULIN LANTUS (GLARGINE) 1 /0.01ml (100units/ml) SC SCH ×2 (06:49→22:21)
[2022-02-28] MEDS: NOREPINEPHRINE 8 MG/250ML KIT 250 ML IV SCH ×2 (06:50→13:47)
[2022-02-28 07:54] LABS: Potassium 4.4 mmol/L (3.5-5.1)
[2022-02-28 07:55] LABS: Albumin 1.7 g/dL (3.4-5.0); BUN/Creatinine Ratio 21.7; Bilirubin, Total 2.7 mg/dL (0.2-1.0); Calcium 7.9 mg/dL (8.5-10.1); Magnesium 2.9 mg/dL (1.6-2.6); Phosphorus 5.7 mg/dL (2.5-4.90); Total Protein 5.1 g/dL (6.4-8.2)
[2022-02-28] MEDS: MIDAZOLAM DRIP 50 mg/50mL 50 ML IV SCH (08:15)
[2022-02-28] MEDS: fentaNYL Drip 2500mCg/250mlNS 250 ML IV SCH (08:15)
[2022-02-28] MEDS: PANTOPRAZOLE 40 MG/10 ML VIAL INJ IV SCH (09:15)
[2022-02-28] MEDS: SODIUM CHLOR 0.9% PF (SALINE LOCK) 10ML VIAL/SYR IV SCH ×2 (09:16→22:20)
[2022-02-28] MEDS: CEFEPIME 2 GM in SODIUM CHL 0.9% 50 ML IV SCH (09:17)
[2022-02-28] MEDS: PHENYLEPHRINE IV 250 ML IV SCH (11:20)
[2022-02-28] MEDS ORDERED: DAPTOmycin 500 MG in SODIUM CHL 0.9% 50 ML IV SCH (17:00)
[2022-02-28] MEDS: MICAFUNGIN SODIUM 100 MG in SODIUM CHL 0.9% 100 ML IV SCH (20:00)
[2022-02-28] MEDS ORDERED: TPN PER PHARMACY IV NR ×6 (20:00)
[2022-03-01] VITALS (104 sets, daily range): BP systolic 78–126; BP diastolic 49–79
[2022-03-01] MEDS: ACCU-CHEK COMFORT CURVE STRIP VI SCH ×4 (00:21→17:43)
[2022-03-01] MEDS: InsuLIN REG 1unit/0.01ml Soln (100units/ml) SC SCH ×5 (00:24→23:38)
[2022-03-01] MEDS: ALBUTEROL SULF 2.5 MG/0.5ML(0.5%) NEB SOLN NEB SCH ×4 (01:05→18:17)
[2022-03-01] MEDS: PHENYLEPHRINE IV 250 ML IV SCH ×2 (04:00→12:20)
[2022-03-01 04:52] LABS: Basophils # (auto) 0.1 10 ^3/uL (0-0.2); Eosinophils # (auto) 0.3 10 ^3/uL (0-0.8); Hemoglobin 9.4 g/dL (13.5-17.5)
[2022-03-01 04:57] LABS: Basophils % (auto) 0.8 % (0.0-2.0); Eosinophils % (auto) 1.7 % (0.0-7.0); Lymphocytes % (auto) 6.5 % (10.0-50.0); Mean Corpuscular Hemoglobin 26.7 pg (28.0-32.0); Mean Corpuscular Hgb Conc. 33.6 g/dL (32.0-36.0); Mean Corpuscular Volume 79.6 fL (80.0-100.0); Monocytes % (auto) 12.3 % (0.0-12.0); Neutrophils # (auto) 12.7 10 ^3/uL (1.6-8.6); Neutrophils % (auto) 78.7 % (37.0-80.0); Red Blood Cells 3.52 10^6/uL (4.5-5.90); White Blood Cell 16.2 10^3/uL (4.4-10.8)
[2022-03-01 05:09] LABS: Red Cell Distribution Width 20.4 % (11.8-14.3)
[2022-03-01 05:14] LABS: Potassium 3.8 mmol/L (3.5-5.1)
[2022-03-01 05:17] LABS: Albumin 1.6 g/dL (3.4-5.0); BUN/Creatinine Ratio 24.9; Bilirubin, Total 2.7 mg/dL (0.2-1.0); Calcium 7.8 mg/dL (8.5-10.1); Magnesium 2.8 mg/dL (1.6-2.6); Phosphorus 4.4 mg/dL (2.5-4.90)
[2022-03-01] MEDS: metroNIDAZOLE 500MG/100ML 100 ML IV SCH ×3 (05:44→21:36)
[2022-03-01] MEDS: ACETYLCYSTEINE 20%(200MG/ML) SOL 4ML NEB SCH ×3 (06:26→18:20)
[2022-03-01] MEDS: INSULIN LANTUS (GLARGINE) 1 /0.01ml (100units/ml) SC SCH ×2 (06:42→21:50)
[2022-03-01] MEDS: fentaNYL Drip 2500mCg/250mlNS 250 ML IV SCH (08:01)
[2022-03-01] MEDS: MIDAZOLAM DRIP 50 mg/50mL 50 ML IV SCH (08:01)
[2022-03-01] MEDS ORDERED: SODIUM CHL 0.9% 1000 ML BAG XX ONE (08:30)
[2022-03-01] MEDS: SODIUM CHLOR 0.9% PF (SALINE LOCK) 10ML VIAL/SYR IV SCH ×2 (09:40→21:41)
[2022-03-01] MEDS: PANTOPRAZOLE 40 MG/10 ML VIAL INJ IV SCH (09:40)
[2022-03-01] MEDS: ALBUMIN 25% 100 ML IV PRN ×2 (10:30→11:30)
[2022-03-01] MEDS: CEFEPIME 2 GM in SODIUM CHL 0.9% 50 ML IV SCH (13:28)
[2022-03-01] MEDS: NOREPINEPHRINE 8 MG/250ML KIT 250 ML IV SCH (13:48)
[2022-03-01] MEDS ORDERED: TPN PER PHARMACY IV NR ×6 (20:00)
[2022-03-01] MEDS ORDERED: EPOETIN ALFA-EPBX 10,000 UNIT/1ML VIAL SC ONE (21:00)
[2022-03-01] MEDS: MICAFUNGIN SODIUM 100 MG in SODIUM CHL 0.9% 100 ML IV SCH (21:21)
[2022-03-02] VITALS (103 sets, daily range): BP systolic 83–122; BP diastolic 51–78
[2022-03-02] MEDS: ACCU-CHEK COMFORT CURVE STRIP VI SCH ×4 (00:19→17:53)
[2022-03-02 03:44] LABS: Basophils # (auto) 0.2 10 ^3/uL (0-0.2); Basophils % (auto) 1.1 % (0.0-2.0); Eosinophils # (auto) 0.5 10 ^3/uL (0-0.8); Hemoglobin 8.6 g/dL (13.5-17.5); Mean Corpuscular Hemoglobin 26.7 pg (28.0-32.0)
[2022-03-02 03:46] LABS: Eosinophils % (auto) 3.3 % (0.0-7.0); Hematocrit 25.4 % (41.0-53.0); Lymphocytes % (auto) 6.1 % (10.0-50.0); Mean Corpuscular Hgb Conc. 33.8 g/dL (32.0-36.0); Mean Corpuscular Volume 79.1 fL (80.0-100.0); Monocytes # (auto) 1.7 10 ^3/uL (0-1.3); Monocytes % (auto) 10.7 % (0.0-12.0); Neutrophils # (auto) 12.5 10 ^3/uL (1.6-8.6); Neutrophils % (auto) 78.8 % (37.0-80.0); Red Blood Cells 3.21 10^6/uL (4.5-5.90); White Blood Cell 15.9 10^3/uL (4.4-10.8)
[2022-03-02 03:54] LABS: Red Cell Distribution Width 20.6 % (11.8-14.3)
[2022-03-02 03:59] LABS: Calcium 8.3 mg/dL (8.5-10.1); Potassium 3.5 mmol/L (3.5-5.1)
[2022-03-02 04:07] LABS: Albumin 2.2 g/dL (3.4-5.0); BUN/Creatinine Ratio 24.9; Bilirubin, Total 3.7 mg/dL (0.2-1.0); Phosphorus 3.3 mg/dL (2.5-4.90); Total Protein 5.5 g/dL (6.4-8.2)
[2022-03-02] MEDS: metroNIDAZOLE 500MG/100ML 100 ML IV SCH ×3 (05:43→21:53)
[2022-03-02] MEDS: InsuLIN REG 1unit/0.01ml Soln (100units/ml) SC SCH ×3 (06:00→17:55)
[2022-03-02] MEDS: ACETYLCYSTEINE 20%(200MG/ML) SOL 4ML NEB SCH ×3 (06:35→21:55)
[2022-03-02] MEDS: ALBUTEROL SULF 2.5 MG/0.5ML(0.5%) NEB SOLN NEB SCH ×3 (06:35→21:55)
[2022-03-02] MEDS: INSULIN LANTUS (GLARGINE) 1 /0.01ml (100units/ml) SC SCH ×2 (06:45→21:54)
[2022-03-02] MEDS ORDERED: OMNIPAQUE ORAL SOLN 500ml 12mg/ml PO ONE (08:25)
[2022-03-02] MEDS: PANTOPRAZOLE 40 MG/10 ML VIAL INJ IV SCH (09:48)
[2022-03-02] MEDS: CEFEPIME 2 GM in SODIUM CHL 0.9% 50 ML IV SCH (09:48)
[2022-03-02] MEDS: SODIUM CHLOR 0.9% PF (SALINE LOCK) 10ML VIAL/SYR IV SCH ×2 (12:14→21:54)
[2022-03-02] MEDS ORDERED: fentaNYL Drip 2500mCg/250mlNS 250 ML IV ONE (13:39)
[2022-03-02] MEDS ORDERED: fentaNYL Drip 2500mCg/250mlNS 250 ML IV SCH (14:00)
[2022-03-02] MEDS ORDERED: LIDOCAINE 2% (LOCAL ANESTH.) PF 5ml SDV ONE (14:45)
[2022-03-02] MEDS: MICAFUNGIN SODIUM 100 MG in SODIUM CHL 0.9% 100 ML IV SCH (19:49)
[2022-03-02] MEDS ORDERED: TPN PER PHARMACY IV NR ×7 (20:00)
[2022-03-03] VITALS (88 sets, daily range): BP systolic 67–126; BP diastolic 36–77
[2022-03-03] MEDS: InsuLIN REG 1unit/0.01ml Soln (100units/ml) SC SCH ×2 (00:42→06:00)
[2022-03-03 04:44] LABS: Albumin 1.9 g/dL (3.4-5.0); Calcium 7.9 mg/dL (8.5-10.1); Magnesium 2.1 mg/dL (1.6-2.6); Potassium 3.5 mmol/L (3.5-5.1)
[2022-03-03 04:54] LABS: Bilirubin, Total 3.2 mg/dL (0.2-1.0); Phosphorus 3.8 mg/dL (2.5-4.90); Total Protein 5.6 g/dL (6.4-8.2)
[2022-03-03] MEDS: metroNIDAZOLE 500MG/100ML 100 ML IV SCH (05:23)
[2022-03-03] MEDS: NOREPINEPHRINE 8 MG/250ML KIT 250 ML IV SCH (05:26)
[2022-03-03] MEDS: ACCU-CHEK COMFORT CURVE STRIP VI SCH ×2 (06:00)
[2022-03-03] MEDS: INSULIN LANTUS (GLARGINE) 1 /0.01ml (100units/ml) SC SCH (06:29)
[2022-03-03] MEDS: ALBUTEROL SULF 2.5 MG/0.5ML(0.5%) NEB SOLN NEB SCH (06:38)
[2022-03-03] MEDS: ACETYLCYSTEINE 20%(200MG/ML) SOL 4ML NEB SCH (06:38)
[2022-03-03 10:39] LABS: Albumin 1.9 g/dL (3.4-5.0); Calcium 8.2 mg/dL (8.5-10.1); Potassium 3.6 mmol/L (3.5-5.1)
[2022-03-03 10:41] LABS: Basophils # (auto) 0.1 10 ^3/uL (0-0.2); Hematocrit 26.1 % (41.0-53.0); Red Cell Distribution Width 20.2 % (11.8-14.3)
[2022-03-03 10:42] LABS: Basophils % (auto) 0.8 % (0.0-2.0); Eosinophils % (auto) 5.5 % (0.0-7.0); Hemoglobin 8.5 g/dL (13.5-17.5); Lymphocytes # (auto) 1.3 10 ^3/uL (0.4-5.4); Lymphocytes % (auto) 7.1 % (10.0-50.0); Mean Corpuscular Hemoglobin 26.3 pg (28.0-32.0); Mean Corpuscular Hgb Conc. 32.5 g/dL (32.0-36.0); Mean Corpuscular Volume 81.1 fL (80.0-100.0); Monocytes # (auto) 1.7 10 ^3/uL (0-1.3); Monocytes % (auto) 9.4 % (0.0-12.0); Neutrophils # (auto) 13.7 10 ^3/uL (1.6-8.6); Neutrophils % (auto) 77.2 % (37.0-80.0); Red Blood Cells 3.22 10^6/uL (4.5-5.90); White Blood Cell 17.7 10^3/uL (4.4-10.8)
[2022-03-03 10:43] LABS: BUN/Creatinine Ratio 26.7; Bilirubin, Total 3.2 mg/dL (0.2-1.0); Total Protein 5.5 g/dL (6.4-8.2)
[2022-03-03] MEDS ORDERED: MORPHINE SULFATE INJ 2 MG/ml SYRG IV PRN (10:45)
[2022-03-03] MEDS: LORazepam 2MG/ML-1ML VIAL IV PRN ×4 (11:06→15:26)
[2022-03-03] MEDS: MORPHINE SULFATE INJ 2 MG/ml SYRG IV PRN ×4 (11:17→15:27)
[2022-03-03] MEDS ORDERED: TPN PER PHARMACY IV NR ×7 (20:00)
[2022-03-04] VITALS: BP 56/35
[2022-03-04 00:24] VITALS: BP 0/0
== END 2022-03-04 00:24 | DRG 853 ==
LOC: ER 15:05 → EDBD 15:05 → TELE 02-09 00:57 → ICU WEST 02-09 14:08
PROVIDERS: ADMIT Nurse Practitioner Family; ATTEND Internal Medicine
PROC: 5A1D70Z Performance of Urinary Filtration, Intermittent, Less than 6 Hours Per Day (ICD-10-PCS; 2022-02-10)
PROC: 0DBN8ZX Excision of Sigmoid Colon, Via Natural or Artificial Opening Endoscopic, Diagnostic (ICD-10-PCS; 2022-02-16)
PROC: 30233N1 Transfusion of Nonautologous Red Blood Cells into Peripheral Vein, Percutaneous Approach (ICD-10-PCS; 2022-02-18)
PROC: 0D1B0Z4 Bypass Ileum to Cutaneous, Open Approach (ICD-10-PCS; 2022-02-18)
PROC: 0DB80ZZ Excision of Small Intestine, Open Approach (ICD-10-PCS; 2022-02-18)
PROC: 5A1955Z Respiratory Ventilation, Greater than 96 Consecutive Hours (ICD-10-PCS; 2022-02-18)
PROC: 0BH17EZ Insertion of Endotracheal Airway into Trachea, Via Natural or Artificial Opening (ICD-10-PCS; 2022-02-18)
PROC: 5A1D70Z Performance of Urinary Filtration, Intermittent, Less than 6 Hours Per Day (ICD-10-PCS; 2022-02-23)
PROC: 02HV33Z Insertion of Infusion Device into Superior Vena Cava, Percutaneous Approach (ICD-10-PCS; principal; 2022-02-26)
PROC: B548ZZA Ultrasonography of Superior Vena Cava, Guidance (ICD-10-PCS; 2022-02-26)
PROC: 0F9 Hepatobiliary System and Pancreas, Drainage (ICD-10-PCS; 2022-03-02)
PROC: 5A1D70Z Performance of Urinary Filtration, Intermittent, Less than 6 Hours Per Day (ICD-10-PCS; 2022-03-02)
DX: A41.51 Sepsis due to Escherichia coli [E. coli] (principal); E13.10 Other specified diabetes mellitus with ketoacidosis without coma; J69.0 Pneumonitis due to inhalation of food and vomit; N17.0 Acute kidney failure with tubular necrosis; R65.21 Severe sepsis with septic shock; G92.8 Other toxic encephalopathy; J96.01 Acute respiratory failure with hypoxia; K63.1 Perforation of intestine (nontraumatic); E43 Unspecified severe protein-calorie malnutrition; K65.1 Peritoneal abscess; K75.0 Abscess of liver; E87.1 Hypo-osmolality and hyponatremia; J98.11 Atelectasis; K56.600 Partial intestinal obstruction, unspecified as to cause; K55.9 Vascular disorder of intestine, unspecified; M86.8X7 Other osteomyelitis, ankle and foot; L03.115 Cellulitis of right lower limb; L97.419 Non-pressure chronic ulcer of right heel and midfoot with unspecified severity; N13.6 Pyonephrosis; Z66 Do not resuscitate; Z20.822 Contact with and (suspected) exposure to COVID-19; D63.1 Anemia in chronic kidney disease; R62.7 Adult failure to thrive; N18.9 Chronic kidney disease, unspecified; Z74.01 Bed confinement status; Z68.25 Body mass index [BMI] 25.0-25.9, adult; B95.2 Enterococcus as the cause of diseases classified elsewhere; D69.59 Other secondary thrombocytopenia; E78.00 Pure hypercholesterolemia, unspecified; E87.5 Hyperkalemia; F17.210 Nicotine dependence, cigarettes, uncomplicated; I12.9 Hypertensive chronic kidney disease with stage 1 through stage 4 chronic kidney disease, or unspecified chronic kidney disease; K72.90 Hepatic failure, unspecified without coma; L97.519 Non-pressure chronic ulcer of other part of right foot with unspecified severity; Z51.5 Encounter for palliative care; L97.529 Non-pressure chronic ulcer of other part of left foot with unspecified severity; N40.0 Benign prostatic hyperplasia without lower urinary tract symptoms; N43.3 Hydrocele, unspecified; N45.3 Epididymo-orchitis; Z79.84 Long term (current) use of oral hypoglycemic drugs; Z82.49 Family history of ischemic heart disease and other diseases of the circulatory system; Z83.3 Family history of diabetes mellitus; Z93.3 Colostomy status; Z99.3 Dependence on wheelchair
CPT/HCPCS: 10005; 36415; 36569; 36600; 45331; 70450; 71045; 73700; 74018; 74150; 74176; 74250; 76705; 76775; 77012; 80048; 80053; 80202; 81001; 82010; 82140; 82570; 82805; 82962; 83036; 83605; 83690; 83735; 83880; 84100; 84132; 84154; 84156; 84300; 84478; 84484; 85007; 85014; 85018; 85025; 85027; 85610; 85730; 86704; 86706; 86708; 86803; 86850; 86900; 86901; 86920; 87040; 87070; 87075; 87077; 87081; 87086; 87088; 87186; 87205; 87340; 87426; 87493; 90935; 92507; 92610; 93005; 94002; 94003; 94640; 96361; 96365; 96375; 97110; 97116; 97163; A4618; C1729; C9113; G0378; J0171; J0696; J1100; J1450; J1642; J1815; J2001; J2185; J2248; J2250; J2405; J2543; J3480; J3490; J7042; J7060; J7131; P9047